=== PATIENT | female | born 1960 | race Caucasian/White ===

== ENCOUNTER 2017-01-03 07:34 | Outpatient (CLI) | payer MEDICARE, MEDICAID ==
[2017-01-03] MEDS ORDERED: GADOBUTROL 7.5 MMOL/7.5 ML VIAL IVP ONE (08:49)
== END 2017-01-03 07:35 | disposition home or self-care (01) ==
DX: K92.1 Melena (principal); B19.20 Unspecified viral hepatitis C without hepatic coma; Z85.048 Personal history of other malignant neoplasm of rectum, rectosigmoid junction, and anus
CPT/HCPCS: 74183; A9585

== ENCOUNTER 2017-04-10 13:41 | Emergency (ER) | payer MEDICARE, MEDICAID ==
[2017-04-10] MEDS ORDERED: SODIUM CHLORIDE 0.9% 1,000 ML IV ONE (14:18)
--- NOTE | 2017-04-10 14:20 | ED Physician Documentation ---
PD HPI ABD PAIN - Stated complaint Stated Complaint: CONSTIPATION - Chief complaint Chief Complaint: Abd Pain - History obtained from History obtained from: Patient - History of Present Illness Timing - onset: Other (57-year-old woman with history of rectal cancer and hysterectomy, also history of small bowel obstruction presents with about 2 weeks worth of decreasing volume of bowel movements despite no decrease in flatus associated with abdominal swelling and pressure. She denies vomiting she says she is eating okay. 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 rectal cancer - Past Surgical History Past Surgical History: Yes General: Colonoscopy, EGD Ortho: Carpal Tunnel surgery /PRECISION LENS TECHNICIAN: Hysterectomy - Present Medications Home Medications: Ambulatory Orders Medication Instructions Recorded Confirmed Amitriptyline [Elavil] 10 mg PO HS 06/07/16 04/10/17 Cholecalciferol [Vitamin D3] 5,000 units PO DAILY 06/07/16 04/10/17 Multivitamin [Multivitamins] 1 cap PO DAILY 06/07/16 04/10/17 buPROPion [Wellbutrin Sr] 450 mg PO DAILY 06/07/16 04/10/17 Albuterol 2.5 mg INH Q4H PRN 04/10/17 04/10/17 Aspirin [Aspirin EC] 81 mg PO DAILY 04/10/17 04/10/17 Calcium Citrate/Vitamin D3 1 each PO DAILY 04/10/17 04/10/17 [Calcium Citrate +Vit D3 Tablet] L. Acidophilus/L. Rhamnosus 1 cap PO DAILY 04/10/17 04/10/17 [Probiotic 15 Billion Cell Cap] Mirtazapine 15 mg PO DAILY 04/10/17 04/10/17 Vitamin C/Biotin [Mbax-Ikpc-Cuenk 1 each PO DAILY 04/10/17 04/10/17 Gummies] predniSONE [Deltasone] 20 mg PO [id number] #21 tab 04/10/17 - Allergies Allergies/Adverse Reactions: Allergies Allergy/AdvReac Type Severity Reaction Status Date / Time Penicillins Allergy Unknown Verified 04/10/17 13:50 - Social History Does the pt smoke?: Yes Smoking Status: Current every day smoker Does the pt drink ETOH?: No Does the pt have substance abuse?: Yes - Family History Family history: reports: Non contributory - Immunizations Immunizations are current?: Yes - POLST Patient has POLST: No PD ED PE NORMAL - Vitals Vital signs reviewed: Yes - General General: Alert and oriented X 3, No acute distress - Neck Neck: Supple, no meningeal sign, No bony TTP - Cardiac Cardiac: RRR, No murmur - Respiratory Respiratory: No respiratory distress, Clear bilaterally - Abdomen Abdomen: Soft (Distended abdomen with tinkling bowel tones and mild diffuse tenderness) - Back Back: No CVA TTP, No spinal TTP - Extremities Extremities: No edema, No calf tenderness / cord - Neuro Neuro: Alert and oriented X 3, Normal speech - Psych Psych: Normal mood, Normal affect Results - Vitals Vitals: Vital Signs - 24 hr 04/10/17 04/10/17 04/10/17 13:46 16:17 17:22 Temperature 36.7 C Heart Rate 116 H 102 H 97 Respiratory 14 18 14 Rate Blood Pressure 139/93 H 140/93 H 128/88 H O2 Saturation 100 100 100 Oxygen O2 Source Room air - Labs Labs: Laboratory Tests 04/10/17 04/10/17 04/10/17 14:37 14:55 15:58 WBC 5.5 RBC 4.74 Hgb 14.3 Hct 44.3 MCV 93.5 MCH 30.3 MCHC 32.4 RDW 15.6 H Plt Count 195 MPV 8.6 Neut # 3.8 Lymph # 0.9 L Morton # 0.6 Eos # 0.1 Baso # 0.0 Absolute Nucleated RBC 0.00 Nucleated RBCs 0.0 Sodium 141 Potassium 3.1 L Chloride 106 Carbon Dioxide 28 Anion Gap 7.0 BUN 13 Creatinine 0.9 Estimated GFR (MDRD) 64 L Glucose 86 Calcium 8.2 L Total Bilirubin 0.5 AST 44 H ALT 45 Alkaline Phosphatase 93 Total Protein 5.4 L Albumin 3.1 L Globulin 2.3 Albumin/Globulin Ratio 1.3 Lipase 22 Urine Color YELLOW Urine Clarity CLEAR Urine pH 5.5 Ur Specific [place] <=1.005 Urine Protein NEGATIVE Urine Glucose (UA) NEGATIVE Urine Ketones NEGATIVE Urine Occult Blood NEGATIVE Urine Nitrite NEGATIVE Urine Bilirubin NEGATIVE Urine Urobilinogen 1 (NORMAL) Ur Leukocyte Esterase NEGATIVE Ur Microscopic Review NOT INDICATED Urine Culture Comments NOT INDICATED - Rads (name of study) CT A/P Radiology: EMP read contemporaneously (Recurrent mid/distal ileal enteritis with mild thickening of the colonic stewart) PD MEDICAL DECISION MAKING - ED course ED course: She presents with a concern for recurrent small bowel obstruction, clinically this is not happening, she is shown to have ileitis on CT, she is seen in the GI physicians and all of them have issues dealing colonoscopies on her because of her anatomy and she is continuing to followup for this. Steroid should be helpful in the interim. Departure - Departure Disposition: Home, Self Care Clinical Impression: Ileitis, Abdominal pain, Enteritis Condition: Good Record reviewed to determine appropriate education?: Yes Instructions: ED Abdominal Pain Unkn Cause Prescriptions: predniSONE [Deltasone] 20 mg PO [id number] #21 tab Comments: Followup with your cream dipper as discussed. Return if worse. You should start to improve after a couple of days of steroid. Your blood pressure was elevated today on check in to the emergency department. This does not mean that you have hypertension, it is a common phenomenon to check into the emergency department and have elevated blood pressure. I recommend that you see your primary care physician within the week to have it rechecked when you're feeling better. Discharge Date/Time: 04/10/17 17:33
[2017-04-10 15:07] LABS: BASOPHILS % (AUTO) 0.8 %; EOSINOPHILS # (AUTO) 0.1 10^3/uL (0.0-0.7); EOSINOPHILS % (AUTO) 1.4 %; HCT - HEMATOCRIT 44.3 % (37.0-47.0); HGB - HEMOGLOBIN 14.3 g/dL (12.0-16.0); LYMPHOCYTES # (AUTO) 0.9 10^3/uL (1.5-3.5); LYMPHOCYTES % (AUTO) 17.2 %; MEAN CORPUSCULAR HEMOGLOBIN 30.3 pg (27.0-31.0); MEAN CORPUSCULAR HGB CONC 32.4 g/dL (32.0-36.0); MEAN CORPUSCULAR VOLUME 93.5 fL (81.0-99.0); MEAN PLATELET VOLUME 8.6 fL (7.9-10.8); MONOCYTES # (AUTO) 0.6 10^3/uL (0.0-1.0); MONOCYTES % (AUTO) 11.3 %; NEUTROPHILS # (AUTO) 3.8 10^3/uL (1.5-6.6); NEUTROPHILS % (AUTO) 69.3 %; RED BLOOD COUNT 4.74 10^6/uL (4.20-5.40); RED CELL DISTRIBUTION WIDTH 15.6 % (12.0-15.0); UNCORRECTED WHITE BLOOD COUNT 5.5 x10^3/uL; WHITE BLOOD COUNT 5.5 x10^3/uL (4.8-10.8)
[2017-04-10 15:22] LABS: ALBUMIN/GLOBULIN RATIO 1.3 (1.0-2.2); BILIRUBIN,TOTAL 0.5 mg/dL (0.2-1.0); CALCIUM 8.2 mg/dL (8.5-10.3); CREATININE 0.9 mg/dL (0.4-1.0); POTASSIUM 3.1 mmol/L (3.5-5.0); TOTAL PROTEIN 5.4 g/dL (6.7-8.2)
[2017-04-10] MEDS ORDERED: POTASSIUM BICARB 25 MEQ TABLET PO STA (15:35)
[2017-04-10] MEDS ORDERED: POTASSIUM BICARB 25 MEQ TABLET PO ONE (15:44)
[2017-04-10 16:12] LABS: BILIRUBIN,URINE NEGATIVE (NEGATIVE); PH,URINE 5.5 PH (5.0-7.5)
[2017-04-10 16:15] LABS: UA CHARGE (STRIP ONLY) YES; UR CULTURE IF IND NOT INDICATED
[2017-04-10] MEDS ORDERED: IOPAMIDOL-300 100 ML VIAL IVP ONE (16:29)
--- NOTE | 2017-04-10 17:05 | CT Preliminary Report ---
Exam: CT Abdomen/Pelvis W/ IMPRESSION: Recurrent mid/distal ileal enteritis. Mild thickening of the distal sigmoid colon and rectal stewart, w hich could represent proctocolitis or artifact of underdistention. Consider GI consultation to evalua te for inflammatory bowel disease such as Crohn's. [facility] SITE ID: [id number]
--- NOTE | 2017-04-10 17:07 | CT Report ---
EXAM: CT ABDOMEN AND PELVIS EXAM DATE: 04/10/2017 04:35 PM. CLINICAL HISTORY: Diffuse abdominal pain. Concern for small bowel obstruction. COMPARISONS: Noncontrast CT abdomen/pelvis 04/08/2016. Contrast-enhanced CT abdomen/pelvis 08/09/2015 . TECHNIQUE: Routine helical CT imaging was performed through the abdomen and pelvis. IV contrast: 100 mL Isovue-300. Enteric contrast: Yes. Reconstructions: Coronal and sagittal. In accordance with CT protocol optimization, one or more of the following dose reduction techniques w ere utilized for this exam: automated exposure control, adjustment of mA and/or KV based on patient s ize, or use of iterative reconstructive technique. FINDINGS: Lung Bases: Emphysematous changes. Liver: Diffuse low-attenuation of the hepatic parenchyma relative to the spleen, as before, indicatin g steatosis. No focal hepatic lesion. Gallbladder/Bile Ducts: Unremarkable. No visualized stones or biliary ductal dilatation. Spleen: Normal. Pancreas: Normal. Adrenal Glands: Normal. Kidneys and Ureters: 2 cm cortical cyst in the medial left upper pole. Several stable subcentimeter r ound hypoattenuating foci elsewhere in the bilateral renal cortices likely also represent cysts. No s tones, hydronephrosis, or hydroureter. Peritoneal Cavity/Bowel: Stable small hiatal hernia. Mid/distal ileal wall thickening in the right lo wer quadrant and pelvis, similar appearance to prior exams. Mild thickening of the decompressed dista l sigmoid colon and rectal stewart. No evidence for bowel obstruction. The appendix is normal. Small-to -moderate volume free fluid. No rim-enhancing focal fluid collection to suggest abscess. No pneumoper itoneum or adenopathy. Pelvic Organs: Post hysterectomy. The bladder is within normal limits. Vasculature: Mild to moderate atherosclerotic calcifications within the aorta and iliac arteries. The visualized mesenteric arteries are patent. Bones: Transitional partially lumbarized S1 vertebral body, a normal variant. Mild to moderate multil evel degenerative disk disease, most pronounced in the visualized lower thoracic spine. Moderate to s evere facet arthropathy in the lower lumbar spine. No acute bony abnormality. Other: None. IMPRESSION: Recurrent mid/distal ileal enteritis. Mild thickening of the distal sigmoid colon and rectal stewart, w hich could represent proctocolitis or artifact of underdistention. Consider GI consultation to evalua te for inflammatory bowel disease such as Crohn's. [facility] Referring Provider Line: [phone] SITE ID: [id number]
[2017-04-10] MEDS ORDERED: predniSONE 20 MG TABLET PO STA (17:11)
[2017-04-10 17:22] VITALS: BP 128/88
[2017-04-10] MEDS ORDERED: predniSONE 20 MG TABLET ONE ×2 (17:23→17:26)
== END 2017-04-10 17:33 | disposition home or self-care (01) ==
LOC: ED 13:41
DX: K52.9 Noninfective gastroenteritis and colitis, unspecified (principal); R10.9 Unspecified abdominal pain; Z85.048 Personal history of other malignant neoplasm of rectum, rectosigmoid junction, and anus; R03.0 Elevated blood-pressure reading, without diagnosis of hypertension; F17.200 Nicotine dependence, unspecified, uncomplicated; F15.10 Other stimulant abuse, uncomplicated
CPT/HCPCS: 36415; 74177; 80053; 81003; 83690; 85025; 96360; 99284; A9270; J7512; Q9967; 81001; 87086

== ENCOUNTER 2017-04-19 05:07 | Emergency (ER) | payer MEDICARE, MEDICAID ==
--- NOTE | 2017-04-19 06:04 | ED Physician Documentation ---
History of Present Illness - Stated complaint Stated Complaint: RT LEG,ANKLE SWELLING - Chief complaint Chief Complaint: Abd Pain - History obtained from History obtained from: Patient - History of Present Illness Timing: How many days ago (3) - Additonal information Additional information: 57 y/o female survivor of rectal cancer has been on prednisone for a partial bowel obstruction for the past week and she has developed swelling of her whole body and this has improved and she is left with swelling to the right lower ext. This is painless and she has not had this before. She has a variety of other symptoms and is anxious and a poor historian. Review of Systems Constitutional: reports: Myalgias, Fatigue. denies: Fever Eyes: denies: Decreased vision Ears: denies: Ear pain Nose: denies: Rhinorrhea / runny nose, Congestion Throat: denies: Sore throat Cardiac: denies: Chest pain / pressure, Palpitations Respiratory: denies: Dyspnea, Cough GI: reports: Abdominal Pain, Nausea. denies: Constipation, Diarrhea : denies: Dysuria, Frequency Skin: denies: Rash Musculoskeletal: reports: Extremity pain, Extremity swelling. denies: Neck pain , Back pain Neurologic: reports: Generalized weakness. 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 - Past Surgical History Past Surgical History: Yes General: Colonoscopy, EGD Ortho: Carpal Tunnel surgery /SALES COUNSELOR: Hysterectomy - Present Medications Home Medications: Ambulatory Orders Medication Instructions Recorded Confirmed Amitriptyline [Elavil] 10 mg PO HS 06/07/16 04/19/17 Cholecalciferol [Vitamin D3] 5,000 units PO DAILY 06/07/16 04/19/17 Multivitamin [Multivitamins] 1 cap PO DAILY 06/07/16 04/19/17 buPROPion [Wellbutrin Sr] 150 mg PO BID 06/07/16 04/19/17 Albuterol 2.5 mg INH Q4H PRN 04/10/17 04/19/17 Aspirin [Aspirin EC] 81 mg PO DAILY 04/10/17 04/19/17 Calcium Citrate/Vitamin D3 1 each PO DAILY 04/10/17 04/19/17 [Calcium Citrate +Vit D3 Tablet] Mirtazapine 15 mg PO DAILY 04/10/17 04/19/17 Vitamin C/Biotin [Nong-Qjbf-Jveho 1 each PO DAILY 04/10/17 04/19/17 Gummies] predniSONE [Deltasone] 20 mg PO [id number] #21 tab 04/10/17 04/19/17 Loperamide [Imodium] 2 mg PO DAILY 04/19/17 04/19/17 Potassium Chloride 10 meq PO DAILY #20 tablet.er 04/19/17 Spironolactone 25 mg PO DAILY #10 tablet 04/19/17 - Allergies Allergies/Adverse Reactions: Allergies Allergy/AdvReac Type Severity Reaction Status Date / Time Penicillins Allergy Unknown Verified 04/10/17 13:50 - Social History Does the pt smoke?: Yes Smoking Status: Current every day smoker Does the pt drink ETOH?: No Does the pt have substance abuse?: Yes - Immunizations Immunizations are current?: Yes - POLST Patient has POLST: No PD ED PE NORMAL - Vitals Vital signs reviewed: Yes (tachy and hypertensive) - General General: Alert and oriented X 3, Well developed/nourished - HEENT HEENT: Atraumatic, PERRL, EOMI - Neck Neck: Supple, no meningeal sign - Cardiac Cardiac: Other (tachy to 110) - Respiratory Respiratory: No respiratory distress, Other (diminished breath sounds ) - Abdomen Abdomen: Normal bowel sounds, Soft, Non tender, Non distended - Back Back: No CVA TTP, No spinal TTP - Derm Derm: Normal color, Warm and dry, No rash - Extremities Extremities: No deformity. No: Other (The right leg is swollen without tenderness to the posterior calf. ) - Neuro Neuro: No motor deficit, No sensory deficit - Psych Psych: Normal mood, Normal affect Results - Vitals Vitals: Vital Signs - 24 hr 04/19/17 04/19/17 04/19/17 05:22 05:28 06:01 Temperature 36.1 C L Heart Rate 107 H 104 H 102 H Respiratory 18 20 19 Rate Blood Pressure 151/101 H 145/107 H 134/97 H O2 Saturation 100 100 100 04/19/17 09:58 Temperature Heart Rate 99 Respiratory 18 Rate Blood Pressure 133/62 H O2 Saturation 98 Oxygen O2 Source Room air - Labs Labs: Laboratory Tests 04/19/17 04/19/17 04/19/17 06:23 06:23 06:23 WBC 9.0 RBC 4.70 Hgb 14.1 Hct 43.8 MCV 93.1 MCH 30.0 MCHC 32.2 RDW 15.6 H Plt Count 248 MPV 8.4 Neut # 6.6 Lymph # 1.6 [place] # 0.7 Eos # 0.1 Baso # 0.1 Absolute Nucleated RBC 0.00 Nucleated RBCs 0.0 D-Dimer 532.8 H Sodium 142 Potassium 2.4 L* Chloride 101 Carbon Dioxide 30 Anion Gap 11.0 BUN 21 H Creatinine 0.8 Estimated GFR (MDRD) 73 L Glucose 81 Calcium 9.3 Total Bilirubin 0.9 AST 78 H ALT 62 H Alkaline Phosphatase 93 Troponin I Total Protein 6.1 L Albumin 3.6 Globulin 2.5 Albumin/Globulin Ratio 1.4 Lipase 20 L Urine Color Urine Clarity Urine pH Ur Specific [place] Urine Protein Urine Glucose (UA) Urine Ketones Urine Occult Blood Urine Nitrite Urine Bilirubin Urine Urobilinogen Ur Leukocyte Esterase Urine RBC Urine WBC Ur Squamous Epith Cells Urine Bacteria Ur Microscopic Review Urine Culture Comments Urine Opiates Screen Ur Oxycodone Screen Urine Methadone Screen Ur Propoxyphene Screen Ur Barbiturates Screen Ur Tricyclics Screen Ur Phencyclidine Scrn Ur Amphetamine Screen U Methamphetamines Scrn U Benzodiazepines Scrn Urine Cocaine Screen U Cannabinoids Screen 04/19/17 04/19/17 06:23 06:35 WBC RBC Hgb Hct MCV MCH MCHC RDW Plt Count MPV Neut # Lymph # [place] # Eos # Baso # Absolute Nucleated RBC Nucleated RBCs D-Dimer Sodium Potassium Chloride Carbon Dioxide Anion Gap BUN Creatinine Estimated GFR (MDRD) Glucose Calcium Total Bilirubin AST ALT Alkaline Phosphatase Troponin I 0.05 Total Protein Albumin Globulin Albumin/Globulin Ratio Lipase Urine Color DARK YELLOW Urine Clarity CLOUDY Urine pH 6.0 Ur Specific [place] >=1.030 H Urine Protein 100 H Urine Glucose (UA) NEGATIVE Urine Ketones NEGATIVE Urine Occult Blood LARGE H Urine Nitrite NEGATIVE Urine Bilirubin NEGATIVE Urine Urobilinogen 2 H Ur Leukocyte Esterase NEGATIVE Urine RBC TNTC H Urine WBC 0-3 Ur Squamous Epith Cells RARE Squamous Urine Bacteria None Seen Ur Microscopic Review INDICATED Urine Culture Comments NOT INDICATED Urine Opiates Screen NEGATIVE Ur Oxycodone Screen NEGATIVE Urine Methadone Screen NEGATIVE Ur Propoxyphene Screen NEGATIVE Ur Barbiturates Screen NEGATIVE Ur Tricyclics Screen NEGATIVE Ur Phencyclidine Scrn NEGATIVE Ur Amphetamine Screen POSITIVE H U Methamphetamines Scrn POSITIVE H U Benzodiazepines Scrn NEGATIVE Urine Cocaine Screen NEGATIVE U Cannabinoids Screen NEGATIVE - Rads (name of study) duplex right leg. Radiology: Prelim report reviewed (Impression: No evidence for deep venous thrombosis.), EMP read indepedently, See rad report Procedures - IVC sono (time) 0600 Bedside IVC sono: IVC measures (cm) (1.57), IVC collapsed c insp (cm) (1.02), Euvolemia PD MEDICAL DECISION MAKING - ED course Complexity details: reviewed old records, reviewed results, re-evaluated patient , considered differential, d/w patient ED course: 57 y/o female with a history of rectal cancer in 2003 s/p radiation has had a partial bowel obstruction treated with prednisone and now has swelling of the right leg and shortness of breath. She has a negative venous doppler and an elevated d-dimer and a CT angio of the chest is ordered. Her care is turned over to Dr. Avendano at shift change. Departure - Departure Disposition: 01 Home, Self Care Clinical Impression: Leg swelling, Hypokalemia Ascites Qualifiers: Ascites type: other type Qualified Code(s): R18.8 - Other ascites Dyspnea Qualifiers: Dyspnea type: unspecified Qualified Code(s): R06.00 - Dyspnea, unspecified Condition: Stable Follow-Up: Callie Chavarria ARNP [Primary Care Provider] - Prescriptions: Potassium Chloride 10 meq PO DAILY #20 tablet.er Spironolactone 25 mg PO DAILY #10 tablet Comments: Regular medications. Maintain hydration. Your potassium is low, and need to take supplement to replace that for couple of weeks. Can try spironolactone diuretic daily for short term to see if helps with the swelling/bloating. Follow up with PMD in the next week, call for appt. Discharge Date/Time: 04/19/17 09:58
[2017-04-19 06:33] LABS: BASOPHILS # (AUTO) 0.1 10^3/uL (0.0-0.1); BASOPHILS % (AUTO) 0.8 %; EOSINOPHILS # (AUTO) 0.1 10^3/uL (0.0-0.7); EOSINOPHILS % (AUTO) 0.6 %; HCT - HEMATOCRIT 43.8 % (37.0-47.0); HGB - HEMOGLOBIN 14.1 g/dL (12.0-16.0); LYMPHOCYTES # (AUTO) 1.6 10^3/uL (1.5-3.5); MEAN CORPUSCULAR HGB CONC 32.2 g/dL (32.0-36.0); MEAN CORPUSCULAR VOLUME 93.1 fL (81.0-99.0); MEAN PLATELET VOLUME 8.4 fL (7.9-10.8); MONOCYTES # (AUTO) 0.7 10^3/uL (0.0-1.0); MONOCYTES % (AUTO) 7.3 %; NEUTROPHILS # (AUTO) 6.6 10^3/uL (1.5-6.6); NEUTROPHILS % (AUTO) 73.3 %; RED CELL DISTRIBUTION WIDTH 15.6 % (12.0-15.0)
[2017-04-19] MEDS ORDERED: POTASSIUM BICARB 25 MEQ TABLET PO ONE ×2 (06:50→08:24)
[2017-04-19] MEDS ORDERED: POTASSIUM BICARB 25 MEQ TABLET PO STA ×2 (06:50→08:11)
[2017-04-19 06:51] LABS: ALBUMIN/GLOBULIN RATIO 1.4 (1.0-2.2); BILIRUBIN,TOTAL 0.9 mg/dL (0.2-1.0); CALCIUM 9.3 mg/dL (8.5-10.3); CREATININE 0.8 mg/dL (0.4-1.0); TOTAL PROTEIN 6.1 g/dL (6.7-8.2)
[2017-04-19 06:51] LABS: BILIRUBIN,URINE NEGATIVE (NEGATIVE)
[2017-04-19 06:52] LABS: POTASSIUM 2.4 mmol/L (3.5-5.0)
[2017-04-19 07:06] LABS: UA w/ MICROSCOPIC CHARGE YES; UR CULTURE IF IND NOT INDICATED; WBC,URINE 0-3 /HPF (0-5)
--- NOTE | 2017-04-19 07:59 | Ultrasound Preliminary Report ---
Exam: US Duplex Ext Veins Right IMPRESSION: No evidence for deep venous thrombosis. [facility] SITE ID: [id number]
--- NOTE | 2017-04-19 08:01 | Ultrasound Report ---
EXAM: RIGHT LOWER EXTREMITY VENOUS ULTRASOUND EXAM DATE: 04/19/2017 07:51 AM. CLINICAL HISTORY: Unilateral leg swelling. . COMPARISON: None. TECHNIQUE: Real-time sonographic vascular imaging was performed by the freight clerk through the lower extremity utilizing both color-flow and Doppler spectral analysis. Multiple marketing development representative static chelsea ges were saved for review. FINDINGS: Common Femoral Vein (CFV): Normal. CFV-GSV Junction: Normal. Profunda Femoral Vein (PFV): Normal. Femoral Vein (FV) Prox: Normal. Femoral Vein (FV) Mid: Normal. Femoral Vein (FV) Dist: Normal. Popliteal Vein: Normal. Posterior Tibial Veins: Normal. Peroneal Veins: Normal. Contralateral Side CFV: Normal. Other: None. IMPRESSION: No evidence for deep venous thrombosis. [facility] Referring Provider Line: [phone] SITE ID: [id number]
[2017-04-19] MEDS ORDERED: IOPAMIDOL-300 100 ML VIAL IVP ONE (08:54)
--- NOTE | 2017-04-19 09:23 | CT Preliminary Report ---
Exam: CT Chest Angio (PE) IMPRESSION: 1. No evidence of pulmonary embolus. 2. Cardiomegaly. Coronary artery and aortic atherosclerosis. Limited luminal enhancement of the thora cic aorta. No thoracic aortic aneurysm. 3. Very small right pleural effusion. 4. Faint prominence of the vasculature and interstitium which may be due to underlying lung disease o r mild edema. 5. Small volume of upper abdominal perihepatic and perisplenic free fluid. 6. Subcutaneous edema. [facility] SITE ID: [id number]
--- NOTE | 2017-04-19 09:43 | CT Report ---
EXAM: CT ANGIOGRAM CHEST EXAM DATE: 04/19/2017 08:54 AM. CLINICAL HISTORY: Dyspnea on exertion. COMPARISON: 06/10/2016. TECHNIQUE: Routine helical imaging was performed through the chest in the pulmonary arterial phase. I V Contrast: 100 cc of Isovue-300. Reconstructions: Coronal 3-D MIP reconstructions.Sagittal and coron al. In accordance with CT protocol optimization, one or more of the following dose reduction techniques w ere utilized for this exam: automated exposure control, adjustment of mA and/or KV based on patient s ize, or use of iterative reconstructive technique. FINDINGS: Pulmonary Arteries: Diagnostic quality: Adequate through the segmental arteries. No evidence for acute or chronic pulmona ry emboli. Lungs/Pleura: Parenchymal bullae is again seen in the left medial lower lobe. There is mild bronchial thickening and bronchovascular thickening. There are mild emphysematous changes. Septa are mildly pr ominent and there are very faint ground-glass density noted bilaterally. Scar/ atelectasis is present in the right middle lobe, lingula and both lower lobes. No areas of dense consolidation. Very small right pleural effusion. Mediastinum: Heart is enlarged. Small pericardial effusion. Coronary artery calcified plaque. Small h iatal hernia. Subcentimeter mediastinal and hilar lymph nodes. There is mediastinal edema. Right supe rior paratracheal 6 mm short axis dimension extension lymph node is seen. Visualized thyroid gland is unremarkable on these unenhanced images. Thoracic Aorta: Limited in detail due to lack of enhancement. No evidence of aneurysm. Thoracic aorti c calcified plaque. Upper Abdomen: Included portions of the liver and spleen are unremarkable. There is perihepatic free fluid. Included portions of the pancreas and adrenals are unremarkable. Upper pole low-attenuation le mary is seen in the left kidney as before. Otherwise, included portions of upper abdominal bowel is u nremarkable. Other: Degenerative changes of the thoracic spine. No acute osseous abnormalities are identified. Deg enerative changes of both shoulders. There is subcutaneous edema. IMPRESSION: 1. No evidence of pulmonary embolus. 2. Cardiomegaly. Coronary artery and aortic atherosclerosis. Limited luminal enhancement of the thora cic aorta. No thoracic aortic aneurysm. 3. Very small right pleural effusion. 4. Faint prominence of the vasculature and interstitium which may be due to underlying lung disease o r mild edema. 5. Small volume of upper abdominal perihepatic and perisplenic free fluid. 6. Subcutaneous edema. [facility] Referring Provider Line: [phone] SITE ID: [id number]
--- NOTE | 2017-04-19 09:44 | ED Physician Documentation ---
ED Addendum - Addendum Addendum: 04/19/17 09:42 CT report showing no PE. Note made of some free fluid in upper abd cavity. This was also noted on CT abd 04/10/17. Presume some ascites, but does not have liver elevations (patient says h/o Hep C though). Could be from enteritis that had been seen on CT 04/10. Can try some diuretic, though will want to increase potassium level first. Had gotten K supplement here in ED. Will continue oral replacement outpt.
[2017-04-19 09:58] VITALS: BP 133/62
--- NOTE | 2017-04-20 15:39 | ED Physician Documentation ---
ED Addendum - Addendum Addendum: 04/20/17 15:38 Call from pharmacy, she didn't have the prescriptions, only the discharge paperwork, I confirmed that these prescriptions were written by us.
== END 2017-04-19 09:58 | disposition home or self-care (01) ==
LOC: ED 05:07
DX: R22.41 Localized swelling, mass and lump, right lower limb (principal); E87.6 Hypokalemia; R18.8 Other ascites; R06.00 Dyspnea, unspecified; J44.9 Chronic obstructive pulmonary disease, unspecified; K21.9 Gastro-esophageal reflux disease without esophagitis; M19.90 Unspecified osteoarthritis, unspecified site; Z85.528 Personal history of other malignant neoplasm of kidney; F17.200 Nicotine dependence, unspecified, uncomplicated
CPT/HCPCS: 36415; 71275; 80053; 80306; 81001; 83690; 84484; 85025; 85379; 93971; 99284; A9270; Q9967; 81003; 87086

== ENCOUNTER 2017-04-21 12:36 | Outpatient (CLI) | payer MEDICARE, MEDICAID | END 2017-04-21 12:37 | disposition critical access hospital (66) | LOC: EMS 12:36 | PROVIDERS: ATTEND Surgery | DX: R10.9 Unspecified abdominal pain (principal) | CPT/HCPCS: A0425; A0429 ==

== ENCOUNTER 2017-04-21 13:04 | Inpatient (IN) | payer MEDICARE, MEDICAID ==
--- NOTE | 2017-04-21 13:24 | ED Physician Documentation ---
PD HPI ABD PAIN - Stated complaint Stated Complaint: SWOLLEN ABD - Chief complaint Chief Complaint: Abd Pain - History obtained from History obtained from: Patient, EMS - History of Present Illness Timing - onset: Other (This a 57-year-old woman with history of rectal cancer and hysterectomy. She was seen by me on the fourth of this month, symptoms at that time her concerning for small bowel obstruction, CT showed potentially an enteritis/ileitis but there was no ascites at the time. She was started on prednisone which she has since finished. She was seen again a few days ago, she had imaging including CT angiogram of the chest after a positive d-dimer showing coronary disease and potentially mild edema (no PE). She had 3 significant hypokalemia and was started on potassium supplementation as well as Aldactone. She returns today for increasing abdominal swelling associated with mild shortness of breath and she complains of pedal edema and edema of her genitals. She has been having bowel movements, assisted with laxitive's. She denies any fevers or orthopnea. Abdomen is in so much pain full as pressure- like. She has no he personal history of heart problems but there is an extensive history of heart problems in the family. She is a little evasive when asked her when she used meth amphetamines last, potentially 5-10 days ago. No history of alcohol abuse.) Review of Systems Ten Systems: 10 systems reviewed and negative Constitutional: reports: Fatigue. denies: Fever, Chills Nose: denies: Rhinorrhea / runny nose, Congestion Cardiac: reports: Pedal edema. denies: Chest pain / pressure, Palpitations, Calf pain Respiratory: reports: Dyspnea. denies: Cough, Hemoptysis, Wheezing GI: reports: Abdominal Swelling, Nausea, Vomiting (oonce), Constipation. denies : Bloody / black stool PD PAST MEDICAL HISTORY - Past Medical History Cardiovascular: None Respiratory: COPD Neuro: None Endocrine/Autoimmune: None GI: GERD HOPPER ATTENDANT: None : None HEENT: None Psych: Depression, Anxiety Musculoskeletal: Osteoarthritis, Osteoporosis, Scoliosis, Chronic back pain, Other Derm: None - Past Surgical History Past Surgical History: Yes General: Colonoscopy, EGD Ortho: Carpal Tunnel surgery /HOPPER ATTENDANT: Hysterectomy - Present Medications Home Medications: Ambulatory Orders Medication Instructions Recorded Confirmed buPROPion [Wellbutrin Sr] 150 mg PO BID 06/07/16 04/19/17 Albuterol 2.5 mg INH Q4H PRN 04/10/17 04/19/17 Potassium Chloride 10 meq PO DAILY #20 tablet.er 04/19/17 Spironolactone 25 mg PO DAILY #10 tablet 04/19/17 - Allergies Allergies/Adverse Reactions: Allergies Allergy/AdvReac Type Severity Reaction Status Date / Time Penicillins Allergy Unknown Verified 04/21/17 13:10 - Social History Does the pt smoke?: Yes Smoking Status: Current every day smoker Does the pt drink ETOH?: No Does the pt have substance abuse?: Yes Substance Use and Type: Meth - Family History Family history: reports: Non contributory - Immunizations Immunizations are current?: Yes - POLST Patient has POLST: No PD ED PE NORMAL - Vitals Vital signs reviewed: Yes (hypertensive) - General General: Alert and oriented X 3, No acute distress - HEENT HEENT: PERRL, EOMI, Other (marked JVD) - Cardiac Cardiac: RRR, No murmur - Respiratory Respiratory: No respiratory distress, Clear bilaterally - Abdomen Abdomen: Soft, Non tender, Other (Swollen with dullness to percussion and bedside ultrasound does show ascites) - Derm Derm: Normal color, Warm and dry - Extremities Extremities: Other (3+ pitting pedal edema) - Neuro Neuro: Alert and oriented X 3, Normal speech - Psych Psych: Normal mood, Normal affect Results - Vitals Vitals: Vital Signs - 24 hr 04/21/17 04/21/17 13:05 13:59 Temperature 37.2 C Heart Rate 107 H 113 H Respiratory 22 18 Rate Blood Pressure 149/94 H 138/96 H O2 Saturation 100 100 Oxygen O2 Source Room air - EKG (time done) 1331 Rate: Rate (enter#) (106) Rhythm: NSR (with pac), LAE, BRE [place]: Normal Intervals: Normal TN QRS: Normal Ischemia: Non specific changes Computer interpretation: Agree with computer - Labs Labs: Laboratory Tests 04/21/17 04/21/17 04/21/17 14:10 14:10 14:10 WBC 12.5 H RBC 4.54 Hgb 13.8 Hct 41.6 MCV 91.5 MCH 30.4 MCHC 33.2 RDW 15.5 H Plt Count 237 MPV 8.4 Neut # 10.6 H Lymph # 0.9 L Barnes # 0.8 Eos # 0.1 Baso # 0.1 Absolute Nucleated RBC 0.01 Nucleated RBCs 0.1 PT 13.6 H INR 1.2 Sodium 142 Potassium 2.7 L Chloride 104 Carbon Dioxide 28 Anion Gap 10.0 BUN 12 Creatinine 0.6 Estimated GFR (MDRD) 102 Glucose 113 H Calcium 8.6 Total Bilirubin 1.2 H AST 56 H ALT 55 Alkaline Phosphatase 87 Total Creatine Kinase 199 CK-MB (CK-2) Troponin I B-Natriuretic Peptide Total Protein 6.0 L Albumin 3.4 Globulin 2.6 Albumin/Globulin Ratio 1.3 Lipase 23 04/21/17 04/21/17 14:10 14:10 WBC RBC Hgb Hct MCV MCH MCHC RDW Plt Count MPV Neut # Lymph # Barnes # Eos # Baso # Absolute Nucleated RBC Nucleated RBCs PT INR Sodium Potassium Chloride Carbon Dioxide Anion Gap BUN Creatinine Estimated GFR (MDRD) Glucose Calcium Total Bilirubin AST ALT Alkaline Phosphatase Total Creatine Kinase CK-MB (CK-2) 8.3 H Troponin I 0.04 B-Natriuretic Peptide 1981 H Total Protein Albumin Globulin Albumin/Globulin Ratio Lipase - Rads (name of study) 2v chest Radiology: EMP read contemporaneously (Cardiomegaly but clear lungs except for increased interstitial markings) Procedures - General procedure General procedure: She was difficult for IV access, I personally placed a 18-gauge IV after ChloraPrep in the left external jugular vein and blood was drawn. PD MEDICAL DECISION MAKING - ED course ED course: This 57-year-old woman presents with acute abdominal swelling and evidence of anasarca, this is consistent with potentially right-sided heart failure which is a new diagnosis for her. Her BNP is quite elevated potassium is still quite low. For that reason diuretics were held initially because she will need to have potassium repletion first. Spoke with Dr. Bryant for admission at 250 p.m. Departure - Departure Disposition: 66 [facility] DC/Xfer Clinical Impression: Abdominal pain, hepatitis C, Hypokalemia Ascites Qualifiers: Ascites type: other type Qualified Code(s): R18.8 - Other ascites CHF (congestive heart failure) Qualifiers: Congestive heart failure type: unspecified congestive heart failure type Congestive heart failure chronicity: acute Qualified Code(s): I50.9 - Heart failure, unspecified Condition: Serious
[2017-04-21] MEDS ORDERED: PROMETHAZINE INJ 12.5 MG in SODIUM CHLORIDE 0.9% 50 ML IV STA (14:00)
[2017-04-21] MEDS ORDERED: SODIUM CHLORIDE 0.9% 50 ML IV ONE (14:16)
[2017-04-21] MEDS ORDERED: PROMETHAZINE 25 MG/1 ML VIAL ONE (14:16)
[2017-04-21 14:23] LABS: BASOPHILS # (AUTO) 0.1 10^3/uL (0.0-0.1); BASOPHILS % (AUTO) 0.5 %; EOSINOPHILS # (AUTO) 0.1 10^3/uL (0.0-0.7); EOSINOPHILS % (AUTO) 0.7 %; HCT - HEMATOCRIT 41.6 % (37.0-47.0); HGB - HEMOGLOBIN 13.8 g/dL (12.0-16.0); LYMPHOCYTES # (AUTO) 0.9 10^3/uL (1.5-3.5); LYMPHOCYTES % (AUTO) 7.3 %; MEAN CORPUSCULAR HEMOGLOBIN 30.4 pg (27.0-31.0); MEAN CORPUSCULAR HGB CONC 33.2 g/dL (32.0-36.0); MEAN CORPUSCULAR VOLUME 91.5 fL (81.0-99.0); MEAN PLATELET VOLUME 8.4 fL (7.9-10.8); MONOCYTES # (AUTO) 0.8 10^3/uL (0.0-1.0); MONOCYTES % (AUTO) 6.6 %; NEUTROPHILS # (AUTO) 10.6 10^3/uL (1.5-6.6); NEUTROPHILS % (AUTO) 84.9 %; NUCLEATED RED BLOOD CELLS AUTO 0.1 /100WBC; RED BLOOD COUNT 4.54 10^6/uL (4.20-5.40); RED CELL DISTRIBUTION WIDTH 15.5 % (12.0-15.0); UNCORRECTED WHITE BLOOD COUNT 12.5 x10^3/uL; WHITE BLOOD COUNT 12.5 x10^3/uL (4.8-10.8)
[2017-04-21 14:33] LABS: INR 1.2 (0.8-1.2); PT - PROTHROMBIN TIME 13.6 secs (9.9-12.6)
[2017-04-21 14:41] LABS: ALBUMIN/GLOBULIN RATIO 1.3 (1.0-2.2); BILIRUBIN,TOTAL 1.2 mg/dL (0.2-1.0); CALCIUM 8.6 mg/dL (8.5-10.3); CREATININE 0.6 mg/dL (0.4-1.0); POTASSIUM 2.7 mmol/L (3.5-5.0)
[2017-04-21 14:44] LABS: TROPONIN I 0.04 ng/mL (<0.49)
[2017-04-21] MEDS ORDERED: POTASSIUM CHLOR 10 MEQ/100 ML 100 ML IV ONE ×2 (14:45→14:59)
[2017-04-21 14:46] LABS: CREATINE KINASE MB 8.3 ng/mL (0.6-6.3)
--- NOTE | 2017-04-21 15:17 | XRAY Preliminary Report ---
Exam: XR Chest 2 View PA/LAT IMPRESSION: 1. Cardiomegaly with no pulmonary edema. 2. No focal consolidation. 3. Increased interstitial markings with peribronchial cuffing are nonspecific areas in the setting of reactive airways disease, bronchitis and viral infection. [facility] SITE ID: [id number]
--- NOTE | 2017-04-21 15:20 | XRAY Report ---
EXAM: CHEST RADIOGRAPHY EXAM DATE: 04/21/2017 02:49 PM. CLINICAL HISTORY: CHF. COMPARISON: None. TECHNIQUE: 2 views. FINDINGS: Lungs/Pleura: Subtle increased interstitial markings with peribronchial cuffing. No focal opacities e vident. No pleural effusion. No pneumothorax. Normal volumes. Mediastinum: The heart is enlarged. The pulmonary vasculature is within normal limits. Other: None. IMPRESSION: 1. Cardiomegaly with no pulmonary edema. 2. No focal consolidation. 3. Increased interstitial markings with peribronchial cuffing are nonspecific areas in the setting of reactive airways disease, bronchitis and viral infection. [facility] Referring Provider Line: [phone] SITE ID: [id number]
[2017-04-21] MEDS ORDERED: ZOLPIDEM 5 MG TABLET PO PRN (15:35)
[2017-04-21] MEDS ORDERED: ONDANSETRON 4 MG/2 ML VIAL IVP PRN (15:35)
[2017-04-21] MEDS ORDERED: ACETAMINOPHEN 325 MG TABLET PO PRN (15:35)
[2017-04-21] MEDS ORDERED: oxyCODONE 5 MG TABLET PO PRN (15:35)
[2017-04-21] MEDS ORDERED: PROCHLORPERAZINE 10 MG/2 ML VIAL IVP PRN (15:35)
[2017-04-21] MEDS ORDERED: LORazepam 2 MG/ML SYRINGE IVP STA (16:10)
[2017-04-21] MEDS ORDERED: LORazepam 2 MG/ML SYRINGE ONE (16:15)
--- NOTE | 2017-04-21 17:17 | HISTORY & PHYSICAL EXAMINATION ---
Chief Complaint - Chief Complaint Chief Complaint: abdominal distention History of Present Illness - Admitted From Admitted From:: emergency department - History Obtained From Records Reviewed: yes History obtained from: patient and medical Exam Limitations: none - History of Present Illness HPI Comment/Other: Patient is a 57-year-old female with a past medical history significant for rectal cancer in 2003, status post resection, chemotherapy, radiation, untreated hepatitis C, peptic ulcer disease, methamphetamine abuse, osteoarthritis, osteopenia and tobacco abuse who presented to the emergency department with a chief complaint of abdominal distention. The patient has been seen in the emergency department 3 times in the last 2 weeks. Initially the patient was seen on 04/10/2017 for nausea vomiting and diarrhea a CT scan of the abdomen was done at that time which revealed antritis patient was discharged home with oral steroids. The patient then returned on 04/19/2017 at that time she was seen for abdominal pain and shortness of breath she underwent a CT PE at that time which did not show any evidence of pulmonary embolism. She was found to have severe hypokalemia likely secondary to the persistent diarrhea and was discharged home on oral potassium and Aldactone. The patient returns today complaining of abdominal distention which she states has been worsening over the last 2 weeks. The patient states that she continues to have diarrhea she had several episodes today she is incontinent of stool. She states that she's been vomiting since earlier today and states that she's got shortness of breath secondary to her abdominal distention. She states that the distended abdomen is also causing her to be very anxious. She states that she took a laxative earlier today thinking that this could help her abdominal distention but this does make the diarrhea much worse. The patient denies drinking alcohol or using any recreational drugs. Patient does admit to increased swelling in her lower extremities and in her vaginal area. The patient denies any headaches, blurred vision, runny nose, cough, chest pain, or neurologic deficits. On presentation to the emergency department the patient is afebrile she is tachycardic blood pressures elevated and she is tachypneic but is oxygenating well on room air. The patient's lab work did reveal a potassium of 2.7 her total bilirubin is slightly elevated at 1.2 her AST was slightly elevated at 56 and BNP was very elevated at 1981. The patient appeared to have bilateral lower extremity swelling abdominal wall swelling and swelling in her genital area. The patient also was found to have a distended jugular venous pulse. The patient did have a slight leukocytosis. The patient's chest x-ray showed cardiomegaly without any pulmonary edema or any focal consolidation. The emergency room physician did a ultrasound of the patient's abdomen which showed extensive ascites. The patient was thought to have new onset right-sided heart failure with severe diarrhea and hypokalemia. She was admitted to the medical [facility]. Review of Systems - Constitutional Constitutional: reports: Fatigue, Weakness, Poor appetite, Weight loss. denies : Fever, Chills, Malaise, Diaphoresis, Night sweats, Weight gain - Eyes Eyes: denies: Pain, Irritation, Amaurosis, Blurred vision, Spots in vision, Field loss, Vision loss, Dipolpia, Corrective lenses, Other - Ears, Nose & Throat Ears, Nose & Throat: denies: Ear pain, Hearing loss, Hearing aids, Tinnitus, Vertigo, Nasal pain, Nasal discharge, Nosebleeds, Nasal obstruction, Nasal congestion, Postnasal drainage, Dentures, Sore throat, Hoarseness, Mouth lesions , Bleeding gums, Dental decay, Dental pain, Other - Cardiovascular Cariovascular: reports: Edema, Exertional dyspnea, Decr. exercise tolerance, Orthopnea. denies: Irregular heart rate, Palpitations, Chest pain, Lightheadedness, Syncope - Respiratory Respiratory: reports: Orthopnea, SOB at rest, SOB with exertion. denies: Cough , Sputum production, Wheezing, Hemoptysis, Apnea, Pleuritic pain - Gastrointestinal Gastrointestinal: reports: Abdominal distention, Diarrhea, Nausea, Vomiting, Bile emesis, Bloating, Poor appetite. denies: Black stools, Bloody stools, Wesley blood emesis, Coffee grounds emesis - Genitourinary Genitourinary: reports: Incontinence. denies: Dysuria, Frequency, Urgency, Hematuria - Musculoskeletal Musculoskeletal: reports: Muscle pain. denies: Back pain, Muscle aches, Stiffness, Limited range of motion, Muscle weakness, Joint swelling - Integumentary Integumentary: denies: Rash, Pruritis, Lesions, Dryness, Lumps - Neurological Neurological: reports: General weakness. denies: Focal weakness, Headache, Dizziness, Numbness, Memory problems, Pre-existing deficit, Abnormal gait - Psychiatric Psychiatric: denies: Depression, Anxiety, Suicidal - Endocrine Endocrine: denies: Polyuria, Polydypsia, Polyphagia, Intolerance to cold, Intolerance to heat - Hematologic/Lymphatic Hematologic/Lymphatic: denies: Anemia, Bruising, Lymphadenopathy History - Past Medical History Cardiovascular: reports: None Respiratory: reports: COPD Neuro: reports: None Endocrine/Autoimmune: reports: None GI: reports: GERD, Ulcers (Peptic Ulcer disease), Hepatitis (C), Other (Rectal Cancer s/p resection, chemo and radiation, Hepatitis C) INVASIVE CARDIOVASCULAR TECHNOLOGIST: reports: None : reports: None HEENT: reports: None Psych: reports: Depression, Anxiety Musculoskeletal: reports: Osteoarthritis, Osteoporosis, Scoliosis, Chronic back pain, Other Derm: reports: None MRSA Hx?: No Other Past Medical History: colon cancer. hep c - Past Surgical History General: reports: Colonoscopy, EGD Ortho: reports: Carpal Tunnel surgery /INVASIVE CARDIOVASCULAR TECHNOLOGIST: reports: Hysterectomy - Family & Social History Family History: Mother: , COPD/Emphysema (Mom at 70), Father: Alive and Well (Healthy in 80s) Living arrangement: At home Living Situation: Alone Social History Notes: Patient lives in [place] she was but her 6 months ago. she smokes half a pack of cigarettes a day and has done so for the last She uses methamphetamines but states she has cut down since her . She she has a history of multiple substance abuse. - Substance History Use: Uses substance without health or social issues: Tobacco Abuse: Recurrent use of substance despite neg consequences: Amphetamine Dependence: Experiences withdrawal or developed tolerances: Tobacco, Amphetamine Tobacco Details: Cigarettes - POLST Patient has POLST: No POLST Status: Full Code Meds/Allgy - Home Medications Home Medications: Ambulatory Orders Medication Instructions Recorded Confirmed buPROPion [Wellbutrin Sr] 150 mg PO BID 06/07/16 04/21/17 Albuterol 2.5 mg INH Q4H PRN 04/10/17 04/21/17 Potassium Chloride 10 meq PO DAILY #20 tablet.er 04/19/17 04/21/17 Spironolactone 25 mg PO DAILY #10 tablet 04/19/17 04/21/17 Prednisone 20 mg DAILY 04/21/17 04/21/17 - Allergies Allergies/Adverse Reactions: Allergies Allergy/AdvReac Type Severity Reaction Status Date / Time Penicillins Allergy Unknown Verified 04/21/17 13:10 Exam - Vital Signs Vital Signs: Vital Signs x48h Pulse Resp BP Pulse Ox 04/21/17 16:27 114 H 32 H 154/104 H 99 - Physical Exam General Appearance: positive: Alert, Moderate distress (Very anxious, restless, not comfortable. Pain and diarrhea) Eyes Bilateral: positive: Normal inspection, PERRL, EOMI, No lid inflammation, Conjunctivae nml, Other (Mild icterus) ENT: positive: ENT inspection nml, Pharynx nml, Dry mucous membranes. negative : Purulent nasal drainage, Pharyngeal erythema, Oral lesions Neck: positive: Nml inspection, Thyroid nml, Trachea midline, Other (Distended jugular venous pulse). negative: Thyromegaly, Lymphadenopathy (R), Lymphadenopathy (L) Respiratory: positive: Chest non-tender, Breath sounds nml, Other (Tachypnic does appear to be in mild respiratory distress but lungs sound ok). negative: Wheezes, Rales, Rhonchi Cardiovascular: positive: No murmur, No gallop, Tachycardia Peripheral Pulses: positive: 2+ Abdomen: positive: Tenderness, Guarding, Hepatomegaly, Other (Abdominal distention). negative: Rebound Rectal: positive: Other (vaginal swelling) Back: positive: Nml inspection. negative: CVA tenderness (R), CVA tenderness (L ) Skin: positive: Color nml, Warm, Dry. negative: Cyanosis, Diaphoresis, Pallor Extremities: positive: Non-tender, Full ROM, Nml appearance, Pedal edema ( Bilateral pitting up to kness) Neurologic/Psychiatric: positive: Oriented x3, CN's nml (2-12), Motor nml, Sensation nml, Mood/affect nml Conclusion/Plan - Problem List (1) CHF (congestive heart failure) Conclusion/Plan: Patient presents with JVD, elevated BNP, anasarca CXR negative but patient has shortness of breath with exertion Lungs are clear EKG and trop negative Patient appears to have ascites on exam and bedside ultrasound Likely has right sided heart failure Plan: Echo Repeat trops IV lasix Fluid and Na restriction Strict I/Os and daily weights Qualifiers: Congestive heart failure type: unspecified congestive heart failure type Congestive heart failure chronicity: acute Qualified Code(s): I50.9 - Heart failure, unspecified (2) Ascites Conclusion/Plan: Likely secondary to right sided heart failure although patient has history of Hep C so cant rule out malignancy or cirrhosis Most recent CT abd a few weeks ago did not show ascites or cirrhosis Plan:' Abd ultrasound Paracentesis Send peritoneal fluid for cell count, cytology, albumin and culture Qualifiers: Ascites type: other type Qualified Code(s): R18.8 - Other ascites (3) Hypokalemia Conclusion/Plan: Severe hypokalemia with K of 2.7 Likely secondary to diarrhea Give K riders and PO potassium replacement Monitor K (4) Diarrhea Conclusion/Plan: Unknown etiology Stool appears very pale looks like it is likely from hepatitis Elevated WBC Patient with recent history of enteritis Non bloody COuld be infectious or possibly from IBD Plan" Stool for c diff and cx If negative start immodium Consider colonoscopy if continues (5) HTN (hypertension) Conclusion/Plan: Not on any antihypertensives but hypertensive on presentation Likely secondary to anxiety and distress Monitor Start antihypertensives if needed (6) Tobacco abuse Conclusion/Plan: Offer nicotine patch Distribution Sales Representative once more stable (7) Prophylactic use of low molecular weight heparin for venous thromboembolism Conclusion/Plan: On lovenox (8) Methamphetamine abuse Conclusion/Plan: She states she has cut down but could not tell me when she last used U tox Will monitor for withdrawal Distribution Sales Representative - Lab Results Lab results reviewed: Yes Fish Bones: 04/21/17 14:10 04/21/17 14:10 - Diagnostic Imaging Results Diagnostic Imaging Results: positive: Final report reviewed - EKG Results EKG Interpreted Independently: Yes Issues/Core Measures - Anticipated LOS Anticipated Stay Length: 2 or more midnights - DVT/VTE - Prophylaxis VTE/DVT Prophylaxis med ordered at admit?: Yes
[2017-04-21] MEDS: POTASSIUM CHLOR 10 MEQ/100 ML 100 ML IV SCH ×3 (18:53→23:03)
[2017-04-21] MEDS: POTASSIUM CHLORIDE 20 MEQ TABLET PO SCH (18:57)
[2017-04-21] MEDS: oxyCODONE 5 MG TABLET PO PRN (18:57)
[2017-04-21 21:05] LABS: BILIRUBIN,URINE NEGATIVE (NEGATIVE)
[2017-04-21 21:06] LABS: UA w/ MICROSCOPIC CHARGE YES
[2017-04-21 21:14] LABS: UR CULTURE IF IND NOT INDICATED; WBC,URINE 0-3 /HPF (0-5)
[2017-04-21] MEDS: buPROPion SR 100 MG TABLET PO SCH (21:45)
[2017-04-21] MEDS: SODIUM CHLORIDE FLUSH 0.9% 10 ML SYRINGE IVP SCH (21:45)
[2017-04-21] MEDS: FUROSEMIDE 40 MG/4 ML VIAL IVP SCH (21:45)
[2017-04-22] MEDS: POTASSIUM CHLOR 10 MEQ/100 ML 100 ML IV SCH ×6 (00:12→04:05)
--- NOTE | 2017-04-22 00:22 | Ultrasound Report ---
EXAM: ABDOMEN ULTRASOUND EXAM DATE: 04/21/2017 10:08 PM. CLINICAL HISTORY: Distended abdomen. COMPARISON: None. TECHNIQUE: Real-time scanning was performed with static images obtained. FINDINGS: Liver: Mildly coarse liver parenchyma. No mass or intrahepatic bile duct dilation. 14.2 cm. Main port al vein flow: Hepatopetal. Gallbladder: Negative sonographic Malone sign. Gallbladder wall thickening in the setting of ascites noted. No gallstones present. Small amount of pericholecystic fluid in this patient with ascites. Biliary System: Common bile duct measures 3 mm. No intrahepatic or extrahepatic ductal dilatation. Pancreas: No pancreatic mass, atrophy or calcifications. Possible node anterior to the pancreas. Kidneys: Right: 10.7 cm longitudinally. Normal. No contour-deforming mass, stones, or hydronephrosis. Left: 10.8 cm longitudinally. Normal. No contour-deforming mass, stones, or hydronephrosis. 2.7 cm an echoic left upper renal cyst. No concerning sonographic features. Spleen: 9.1 x 2.9 x 6.6 cm. Normal in size and echotexture. Aorta and Inferior Vena Cava: Distal abdominal aorta not seen well. No aneurysm is present. Comment: Constant motion of the patient is a limiting factor. Ascites. No loculated collections noted. Greenberg catheter is present in the bladder. IMPRESSION: 1. Moderate abdominal ascites. 2. Coarse liver parenchyma. No liver mass. 3. Gallbladder wall thickening without gallstones or sonographic Malone sign. Gallbladder wall thicke merritt likely related to ascites. No common bile duct dilation or stone. [facility] Referring Provider Line: [phone] SITE ID: [id number]
[2017-04-22 02:30] LABS: BASOPHILS # (AUTO) 0.1 10^3/uL (0.0-0.1); BASOPHILS % (AUTO) 0.8 %; EOSINOPHILS # (AUTO) 0.1 10^3/uL (0.0-0.7); EOSINOPHILS % (AUTO) 0.8 %; HCT - HEMATOCRIT 43.5 % (37.0-47.0); HGB - HEMOGLOBIN 14.4 g/dL (12.0-16.0); LYMPHOCYTES # (AUTO) 1.2 10^3/uL (1.5-3.5); LYMPHOCYTES % (AUTO) 12.1 %; MEAN CORPUSCULAR HEMOGLOBIN 30.3 pg (27.0-31.0); MEAN CORPUSCULAR HGB CONC 33.1 g/dL (32.0-36.0); MEAN CORPUSCULAR VOLUME 91.4 fL (81.0-99.0); MEAN PLATELET VOLUME 8.5 fL (7.9-10.8); MONOCYTES % (AUTO) 9.6 %; NEUTROPHILS # (AUTO) 7.9 10^3/uL (1.5-6.6); NEUTROPHILS % (AUTO) 76.7 %; NUCLEATED RED BLOOD CELLS AUTO 0.1 /100WBC; RED BLOOD COUNT 4.76 10^6/uL (4.20-5.40); RED CELL DISTRIBUTION WIDTH 15.7 % (12.0-15.0); UNCORRECTED WHITE BLOOD COUNT 10.2 x10^3/uL; WHITE BLOOD COUNT 10.2 x10^3/uL (4.8-10.8)
[2017-04-22 02:35] LABS: INR 1.2 (0.8-1.2)
[2017-04-22 02:38] LABS: MAGNESIUM 1.5 mg/dL (1.7-2.8); POTASSIUM 4.2 mmol/L (3.5-5.0)
[2017-04-22] MEDS: oxyCODONE 5 MG TABLET PO PRN (02:41)
[2017-04-22] MEDS: SODIUM CHLORIDE FLUSH 0.9% 10 ML SYRINGE IVP SCH ×2 (04:48→08:46)
[2017-04-22] MEDS: LORazepam 2 MG/ML SYRINGE IVP PRN (05:52)
[2017-04-22] MEDS: SODIUM CHLORIDE FLUSH 0.9% 10 ML SYRINGE IVP PRN (05:52)
[2017-04-22] MEDS: PANTOPRAZOLE 40 MG TABLET PO SCH (06:21)
[2017-04-22] MEDS: POTASSIUM CHLORIDE 20 MEQ TABLET PO SCH ×2 (08:44→11:39)
[2017-04-22] MEDS: ASPIRIN EC 81 MG TABLET PO SCH (08:44)
[2017-04-22] MEDS: ENOXAPARIN 40 MG/0.4 ML SYRINGE SUBQ SCH (08:45)
[2017-04-22] MEDS: buPROPion SR 100 MG TABLET PO SCH (08:45)
[2017-04-22] MEDS: FUROSEMIDE 40 MG/4 ML VIAL IVP SCH (08:45)
[2017-04-22] MEDS: POLYETHYLENE GLYCOL 3350 17 GM PACKET PO SCH (08:46)
[2017-04-22] MEDS: LISINOPRIL 5 MG TABLET PO SCH (11:39)
[2017-04-22] MEDS: METOPROLOL TARTRATE 25 MG TABLET PO SCH (11:39)
[2017-04-23] MEDS: SODIUM CHLORIDE FLUSH 0.9% 10 ML SYRINGE IVP PRN ×2 (01:06→03:11)
[2017-04-23] MEDS: LORazepam 2 MG/ML SYRINGE IVP PRN ×3 (01:06→05:05)
[2017-04-23] MEDS: METOPROLOL TARTRATE 25 MG TABLET PO SCH ×3 (01:27→21:32)
[2017-04-23] MEDS: buPROPion SR 100 MG TABLET PO SCH ×3 (01:27→21:32)
[2017-04-23] MEDS: SODIUM CHLORIDE FLUSH 0.9% 10 ML SYRINGE IVP SCH ×4 (01:27→21:36)
[2017-04-23] MEDS: FUROSEMIDE 40 MG/4 ML VIAL IVP SCH ×2 (01:27→10:03)
[2017-04-23] MEDS: POTASSIUM CHLORIDE 20 MEQ TABLET PO SCH ×4 (01:27→18:05)
[2017-04-23 06:13] LABS: BASOPHILS # (AUTO) 0.2 10^3/uL (0.0-0.1); EOSINOPHILS % (AUTO) 0.3 %; HCT - HEMATOCRIT 48.2 % (37.0-47.0); HGB - HEMOGLOBIN 15.2 g/dL (12.0-16.0); LYMPHOCYTES # (AUTO) 1.8 10^3/uL (1.5-3.5); LYMPHOCYTES % (AUTO) 12.2 %; MEAN CORPUSCULAR HEMOGLOBIN 30.2 pg (27.0-31.0); MEAN CORPUSCULAR HGB CONC 31.6 g/dL (32.0-36.0); MEAN CORPUSCULAR VOLUME 95.7 fL (81.0-99.0); MEAN PLATELET VOLUME 8.8 fL (7.9-10.8); MONOCYTES # (AUTO) 1.3 10^3/uL (0.0-1.0); MONOCYTES % (AUTO) 8.9 %; NEUTROPHILS # (AUTO) 11.5 10^3/uL (1.5-6.6); NEUTROPHILS % (AUTO) 77.6 %; RED BLOOD COUNT 5.04 10^6/uL (4.20-5.40); RED CELL DISTRIBUTION WIDTH 16.7 % (12.0-15.0); UNCORRECTED WHITE BLOOD COUNT 14.8 x10^3/uL; WHITE BLOOD COUNT 14.8 x10^3/uL (4.8-10.8)
[2017-04-23 06:34] LABS: MAGNESIUM 1.7 mg/dL (1.7-2.8); POTASSIUM 6.2 mmol/L (3.5-5.0)
[2017-04-23] MEDS: PANTOPRAZOLE 40 MG TABLET PO SCH (06:51)
--- NOTE | 2017-04-23 08:31 | PROVIDER PROGRESS NOTE ---
Assessment/Plan - Problem List (1) CHF (congestive heart failure) Qualifiers: Congestive heart failure type: unspecified congestive heart failure type Congestive heart failure chronicity: acute Qualified Code(s): I50.9 - Heart failure, unspecified Assessment/Plan: Echo showed EF of 45% with was mildly impaired and severe mitral and tricuspid regurg with moderate pulmonary regurg and moderately impaired RV systolic function Patient has both right and left sided heart failure with right being worse than left She has liver congestion and ascites appears to be secondary to CHF as she does not appear to have cirrhosis on ultrasound and LFTs are stable Improved significantly with IV lasix Will start metoprolol and lisinopril today to optimize CHF meds Continue IV lasix BNP worse today but clinically improved Will need outpatient follow up with cardiology Qualifiers: Congestive heart failure type: unspecified congestive heart failure type Congestive heart failure chronicity: acute Qualified Code(s): I50.9 - Heart failure, unspecified (2) Ascites Conclusion/Plan: Appears to be secondary to severe right heart failure Unable to get paracentesis as there was no clear path to fluid on ultrasound Ultrasound did not show any evidence of cirrhosis Improving with IV lasix Continue IV lasix Qualifiers: Ascites type: other type Qualified Code(s): R18.8 - Other ascites (3) Hypokalemia Conclusion/Plan: Likely secondary to diarrhea resolved (4) Diarrhea Conclusion/Plan: C diff and stool cx negative Fecal leukocytes negative Unlikely infectious Started imodium Diarrhea improved (5) HTN (hypertension) Conclusion/Plan: Not on any antihypertensives but hypertensive on presentation BP much improved Started on lisinopril and metoprolol (6) Tobacco abuse Conclusion/Plan: Counselled (7) Prophylactic use of low molecular weight heparin for venous thromboembolism Conclusion/Plan: On lovenox (8) Methamphetamine abuse Conclusion/Plan: Positive on Utox Patient counselled Likely cause of CHF with cardiomyopathy - Current Meds Current Meds: Current Medications Generic Name Dose Route Start Last Admin Trade Name Freq PRN Reason Stop Dose Admin Acetaminophen 650 mg 04/21/17 15:35 04/22/17 05:52 Tylenol PO 650 mg Q4HR PRN Administration Pain 1 to 4 Aspirin 81 mg 04/22/17 09:00 04/22/17 08:44 Ecotrin PO 81 mg DAILY ZEKE Administration Bupropion HCl 150 mg 04/21/17 21:00 04/23/17 01:27 Wellbutrin Sr PO Not Given BID ZEKE Enoxaparin Sodium 40 mg 04/22/17 09:00 04/22/17 08:45 Lovenox SUBQ 40 mg DAILY ZEKE Administration Furosemide 40 mg 04/21/17 21:00 04/23/17 01:27 Lasix Inj 40 Mg Vial IVP Not Given BID ZEKE Lisinopril 5 mg 04/22/17 11:00 04/22/17 11:39 Zestril PO 5 mg DAILY ZEKE Administration Lorazepam 1 mg 04/21/17 17:53 04/23/17 05:05 Ativan Inj IVP 1 mg Q2HR PRN Administration Anxiety Metoprolol Tartrate 25 mg 04/22/17 11:00 04/23/17 01:27 Lopressor PO Not Given BID ZEKE Oxycodone HCl 5 mg 04/21/17 15:35 04/22/17 02:41 Roxicodone PO 5 mg Q4HR PRN Administration Pain 5 to 7 Oxycodone HCl 10 mg 04/21/17 15:35 04/22/17 06:21 Roxicodone PO 10 mg Q4HR PRN Administration Pain 8 to 10 Pantoprazole Sodium 40 mg 04/22/17 07:00 04/23/17 06:51 Protonix PO Not Given QDAC ZEKE Polyethylene Glycol 17 gm 04/22/17 09:00 04/22/17 08:46 Miralax PO Not Given DAILY ZEKE Potassium Chloride 60 meq 04/21/17 17:00 04/23/17 01:27 K-Dur PO Not Given TIDWM ZEKE Sodium Chloride 10 ml 04/21/17 15:35 04/23/17 03:11 Normal Saline Flush 0.9% IVP 10 ml PRN PRN Administration NEEDED PER PROVIDER ORDERS Sodium Chloride 10 ml 04/21/17 22:00 04/23/17 05:05 Normal Saline Flush 0.9% IVP 10 ml Q8HR ZEKE Administration Zolpidem Tartrate 5 mg 04/21/17 15:35 04/22/17 23:45 Ambien PO 5 mg QPM PRN Administration Insomnia - Lab Result Lab results reviewed: Yes Fish Bone Diagrams: 04/23/17 05:00 04/23/17 05:00 - EKG Results EKG Interpreted Independently: Yes - Diagnostic Imaging Results Diagnostic Imaging Results: positive: Final report reviewed - Additional Planning Condition/Complexity: Improved My Orders: My Active Orders 04/22/17 10:08 Miscellaneous Laboratory Order [LAB] Urgent 04/22/17 11:00 Lisinopril [Zestril] 5 mg PO DAILY Metoprolol Tartrate [Lopressor] 25 mg PO BID Plan Discussed with:: Patient Time Spent: 31-60 minutes Subjective - Subjective Patient Reports: Feeling Better (She is feeling much better. Eating breakfast. She states diarrhea has stopped and she feels her abd distension is improved. Breathing is better.) Nursing Reports: No Complaints Objective Vital Signs: Vital Signs - 24 hr 04/22/17 04/22/17 04/22/17 08:24 11:32 11:39 Temperature 37.0 C 36.8 C Heart Rate [ 101 H 100 Brachial] Respiratory 16 18 Rate Blood Pressure 123/87 H Blood Pressure 131/93 H 123/87 H [Left Brachial artery] Blood Pressure [Right Brachial artery] O2 Saturation 95 97 04/23/17 04/23/17 04/23/17 00:00 05:28 07:44 Temperature 37.1 C 36.4 C L 36.4 C L Heart Rate [ 80 73 75 Brachial] Respiratory 18 20 18 Rate Blood Pressure Blood Pressure 109/80 117/81 H [Left Brachial artery] Blood Pressure 90/67 [Right Brachial artery] O2 Saturation 95 94 100 Oxygen O2 Source Room air I&O (Last 24 Hrs): Intake and Output Totals x24h 04/21/17 04/22/17 04/23/17 23:59 23:59 23:59 Intake Total 100 1202 150 Output Total 350 3050 450 Balance -250 -1848 -300 General: Alert, Oriented x3, Cooperative, No acute distress HEENT: Atraumatic, PERRLA, EOMI, Mucous membr. moist/pink Neck: Supple, No JVD, No thyromegaly, +2 carotid pulse wo bruit, No LAD Lymphatic: no adenopathy Neuro: Alert, Non Focal, CN 2-12 Grossly Intact, Oriented Times 3 Cardiovascular: Other (Systolic murmur, JVD improved) Respiratory: Chest non-tender, Rales (bibasilar) Abdomen: No tenderness, Other (Abdominal distention) Extremities: No clubbing, No cyanosis, Normal pulses, Other (bilateral LE edema) Skin: No rashes, No breakdown - Results Results: Laboratory Results WBC 14.8 x10^3/uL (4.8-10.8) H 04/23/17 05:00 RBC 5.04 10^6/uL (4.20-5.40) 04/23/17 05:00 Hgb 15.2 g/dL (12.0-16.0) 04/23/17 05:00 Hct 48.2 % (37.0-47.0) H 04/23/17 05:00 MCV 95.7 fL (81.0-99.0) 04/23/17 05:00 MCH 30.2 pg (27.0-31.0) 04/23/17 05:00 MCHC 31.6 g/dL (32.0-36.0) L 04/23/17 05:00 RDW 16.7 % (12.0-15.0) H 04/23/17 05:00 Plt Count 266 10^3/uL (130-450) 04/23/17 05:00 MPV 8.8 fL (7.9-10.8) 04/23/17 05:00 Neut # 11.5 10^3/uL (1.5-6.6) H 04/23/17 05:00 Lymph # 1.8 10^3/uL (1.5-3.5) 04/23/17 05:00 [place] # 1.3 10^3/uL (0.0-1.0) H 04/23/17 05:00 Eos # 0.0 10^3/uL (0.0-0.7) 04/23/17 05:00 Baso # 0.2 10^3/uL (0.0-0.1) H 04/23/17 05:00 Absolute Nucleated RBC 0.01 x10^3/uL 04/23/17 05:00 Nucleated RBCs 0.0 /100WBC 04/23/17 05:00 PT 14.0 secs (9.9-12.6) H 04/22/17 02:23 INR 1.2 (0.8-1.2) 04/22/17 02:23 Sodium 140 mmol/L (135-145) 04/23/17 05:00 Potassium 6.2 mmol/L (3.5-5.0) H* 04/23/17 05:00 Chloride 106 mmol/L (101-111) 04/23/17 05:00 Carbon Dioxide 24 mmol/L (21-32) 04/23/17 05:00 Anion Gap 10.0 (6-13) 04/23/17 05:00 BUN 12 mg/dL (6-20) 04/21/17 14:10 Creatinine 0.6 mg/dL (0.4-1.0) 04/21/17 14:10 Estimated GFR (MDRD) 102 (>89) 04/21/17 14:10 Glucose 113 mg/dL (70-100) H 04/21/17 14:10 Calcium 8.6 mg/dL (8.5-10.3) 04/21/17 14:10 Magnesium 1.7 mg/dL (1.7-2.8) 04/23/17 05:00 Total Bilirubin 1.2 mg/dL (0.2-1.0) H 04/21/17 14:10 AST 56 IU/L (10-42) H 04/21/17 14:10 ALT 55 IU/L (10-60) 04/21/17 14:10 Alkaline Phosphatase 87 IU/L (42-121) 04/21/17 14:10 Total Creatine Kinase 199 IU/L (22-269) 04/21/17 14:10 CK-MB (CK-2) 8.3 ng/mL (0.6-6.3) H 04/21/17 14:10 Troponin I 0.05 ng/mL (<0.49) 04/22/17 02:23 B-Natriuretic Peptide 900 pg/mL (5-100) H 04/23/17 05:00 Total Protein 6.0 g/dL (6.7-8.2) L 04/21/17 14:10 Albumin 3.4 g/dL (3.2-5.5) 04/21/17 14:10 Globulin 2.6 g/dL (2.1-4.2) 04/21/17 14:10 Albumin/Globulin Ratio 1.3 (1.0-2.2) 04/21/17 14:10 Lipase 23 U/L (22-51) 04/21/17 14:10 Urine Color YELLOW 04/21/17 20:50 Urine Clarity CLEAR (CLEAR) 04/21/17 20:50 Urine pH 6.0 PH (5.0-7.5) 04/21/17 20:50 Ur Specific [place] 1.025 (1.002-1.030) 04/21/17 20:50 Urine Protein 30 mg/dL (NEGATIVE) H 04/21/17 20:50 Urine Glucose (UA) NEGATIVE mg/dL (NEGATIVE) 04/21/17 20:50 Urine Ketones TRACE mg/dL (NEGATIVE) 04/21/17 20:50 Urine Occult Blood NEGATIVE (NEGATIVE) 04/21/17 20:50 Urine Nitrite NEGATIVE (NEGATIVE) 04/21/17 20:50 Urine Bilirubin NEGATIVE (NEGATIVE) 04/21/17 20:50 Urine Urobilinogen 0.2 (NORMAL) E.U./dL (NORMAL) 04/21/17 20:50 Ur Leukocyte Esterase NEGATIVE (NEGATIVE) 04/21/17 20:50 Urine RBC 0-5 /HPF (0-5) 04/21/17 20:50 Urine WBC 0-3 /HPF (0-5) 04/21/17 20:50 Ur Squamous Epith Cells RARE Squamous (<= Few) 04/21/17 20:50 Urine Bacteria Few /HPF (None Seen) 04/21/17 20:50 Ur Microscopic Review INDICATED 04/21/17 20:50 Urine Culture Comments NOT INDICATED 04/21/17 20:50 Stool Leukocytes, Qual NEGATIVE (Negative) 04/21/17 18:00 Urine Opiates Screen NEGATIVE (NEGATIVE) 04/21/17 20:50 Ur Oxycodone Screen NEGATIVE (NEGATIVE) 04/21/17 20:50 Urine Methadone Screen NEGATIVE (NEGATIVE) 04/21/17 20:50 Ur Propoxyphene Screen NEGATIVE (NEGATIVE) 04/21/17 20:50 Ur Barbiturates Screen NEGATIVE (NEGATIVE) 04/21/17 20:50 Ur Tricyclics Screen NEGATIVE (NEGATIVE) 04/21/17 20:50 Ur Phencyclidine Scrn NEGATIVE (NEGATIVE) 04/21/17 20:50 Ur Amphetamine Screen POSITIVE (NEGATIVE) H 04/21/17 20:50 U Methamphetamines Scrn POSITIVE (NEGATIVE) H 04/21/17 20:50 U Benzodiazepines Scrn NEGATIVE (NEGATIVE) 04/21/17 20:50 Urine Cocaine Screen NEGATIVE (NEGATIVE) 04/21/17 20:50 U Cannabinoids Screen NEGATIVE (NEGATIVE) 04/21/17 20:50
[2017-04-23] MEDS ORDERED: DEXTROSE 50% ABBOJECT 25 GM/50 ML SYRINGE IVP ONE (09:00)
[2017-04-23] MEDS ORDERED: INSULIN REGULAR HUMAN 100 UNIT/1 ML 10 ML MDV IVP ONE (09:00)
[2017-04-23] MEDS ORDERED: CALCIUM GLUCONATE 2,000 MG in SODIUM CHLORIDE 0.9% 100ML 100 ML IV ONE (09:15)
[2017-04-23] MEDS: ENOXAPARIN 40 MG/0.4 ML SYRINGE SUBQ SCH ×2 (10:04→10:31)
[2017-04-23] MEDS: ASPIRIN EC 81 MG TABLET PO SCH (10:04)
[2017-04-23] MEDS: LISINOPRIL 5 MG TABLET PO SCH (10:11)
[2017-04-23] MEDS: POLYETHYLENE GLYCOL 3350 17 GM PACKET PO SCH (10:12)
[2017-04-23 10:40] LABS: ALBUMIN/GLOBULIN RATIO 1.2 (1.0-2.2); BILIRUBIN,TOTAL 0.9 mg/dL (0.2-1.0); BUN - BLOOD UREA NITROGEN 29 mg/dL (6-20); CALCIUM 8.5 mg/dL (8.5-10.3); CARBON DIOXIDE - CO2 24 mmol/L (21-32); CHLORIDE 106 mmol/L (101-111); CREATININE 1.2 mg/dL (0.4-1.0); GFR - MDRD 46 (>89); GLUCOSE 140 mg/dL (70-100); SODIUM 139 mmol/L (135-145); TOTAL PROTEIN 5.5 g/dL (6.7-8.2)
[2017-04-24] MEDS: LORazepam 2 MG/ML SYRINGE IVP PRN (00:28)
[2017-04-24] MEDS: SODIUM CHLORIDE FLUSH 0.9% 10 ML SYRINGE IVP PRN (00:29)
[2017-04-24] MEDS: PANTOPRAZOLE 40 MG TABLET PO SCH (06:21)
[2017-04-24] MEDS: SODIUM CHLORIDE FLUSH 0.9% 10 ML SYRINGE IVP SCH (06:21)
[2017-04-24 08:32] VITALS: BP 114/82
[2017-04-24] MEDS: METOPROLOL TARTRATE 25 MG TABLET PO SCH (09:54)
[2017-04-24] MEDS: ASPIRIN EC 81 MG TABLET PO SCH (09:55)
[2017-04-24] MEDS: ENOXAPARIN 40 MG/0.4 ML SYRINGE SUBQ SCH (09:55)
[2017-04-24] MEDS: POTASSIUM CHLORIDE 20 MEQ TABLET PO SCH (09:55)
[2017-04-24] MEDS: POLYETHYLENE GLYCOL 3350 17 GM PACKET PO SCH (09:55)
[2017-04-24] MEDS: buPROPion SR 100 MG TABLET PO SCH (09:55)
[2017-04-24] MEDS: LISINOPRIL 5 MG TABLET PO SCH (09:55)
--- NOTE | 2017-04-24 10:45 | Discharge Plan ---
Discharge Plan Disposition: 01 Home, Self Care Condition: Fair Prescriptions: Potassium Chloride [K-Dur] 20 meq PO DAILYWM #30 tablet Furosemide [Lasix] 20 mg PO DAILY #30 tablet Metoprolol Tartrate [Lopressor] 25 mg PO BID #60 tablet Lisinopril [Zestril] 5 mg PO DAILY #30 tablet Diet: Low Sodium Activity Restrictions: Activity as Tolerated Shower Restrictions: No Driving Restrictions: No Assistance Devices: Walker Weight Bearing: Full Weight Instruction Topics: Heart Failure, ED Ascites No Smoking: If you smoke, Please STOP! Call for help. Follow-up with: Callie Chavarria ARNP [Primary Care Provider] -
--- NOTE | 2017-04-24 10:53 | PROVIDER PROGRESS NOTE ---
Assessment/Plan - Problem List (1) CHF (congestive heart failure) Qualifiers: Congestive heart failure type: unspecified congestive heart failure type Congestive heart failure chronicity: acute Qualified Code(s): I50.9 - Heart failure, unspecified Assessment/Plan: Echo showed EF of 45% with was mildly impaired and severe mitral and tricuspid regurg with moderate pulmonary regurg and moderately impaired RV systolic function Patient has both right and left sided heart failure with right being worse than left She has liver congestion and ascites appears to be secondary to CHF as she does not appear to have cirrhosis on ultrasound and LFTs are stable Improved significantly with IV lasix Started metoprolol and lisinopril yesterday Patient appears euvolemic will stop IV lasix today and transition to PO lasix for home BNP improved Will need outpatient follow up with cardiology Patient with very unsteady gait needs PT evaluation before discharge Overnight patient was very restless and agitated and was given several doses of ativan therefore very lethargic most of the day and unable to participate with PT will need to have evaluation tomorrow before discharging Qualifiers: Congestive heart failure type: unspecified congestive heart failure type Congestive heart failure chronicity: acute Qualified Code(s): I50.9 - Heart failure, unspecified (2) Ascites Conclusion/Plan: Appears to be secondary to severe right heart failure Unable to get paracentesis as there was no clear path to fluid on ultrasound Ultrasound did not show any evidence of cirrhosis Improving with IV lasix Will transition to PO lasix for home will continue to improve with treatment of heart failure Qualifiers: Ascites type: other type Qualified Code(s): R18.8 - Other ascites (3) Hyperkalemia Conclusion/Plan: Secondary to patient receiving too much K and diarrhea stopping K 6.1 Give calcium gluconate, IV insulin and D50 Recheck K and monitor (4) Diarrhea Conclusion/Plan: C diff and stool cx negative Fecal leukocytes negative Unlikely infectious Started imodium Diarrhea resolved (5) HTN (hypertension) Conclusion/Plan: Well controlled on lisinopril and metoprolol (6) Tobacco abuse Conclusion/Plan: Counselled (7) Prophylactic use of low molecular weight heparin for venous thromboembolism Conclusion/Plan: On lovenox (8) Methamphetamine abuse Conclusion/Plan: Positive on Utox Patient counselled Likely cause of CHF with cardiomyopathy - Current Meds Current Meds: Current Medications Generic Name Dose Route Start Last Admin Trade Name Freq PRN Reason Stop Dose Admin Acetaminophen 650 mg 04/21/17 15:35 04/22/17 05:52 Tylenol PO 650 mg Q4HR PRN Administration Pain 1 to 4 Aspirin 81 mg 04/22/17 09:00 04/24/17 09:55 Ecotrin PO 81 mg DAILY ZEKE Administration Bupropion HCl 150 mg 04/21/17 21:00 04/24/17 09:55 Wellbutrin Sr PO 150 mg BID ZEKE Administration Enoxaparin Sodium 40 mg 04/22/17 09:00 04/24/17 09:55 Lovenox SUBQ Not Given DAILY ZEKE Lisinopril 5 mg 04/22/17 11:00 04/24/17 09:55 Zestril PO 5 mg DAILY ZEKE Administration Lorazepam 1 mg 04/21/17 17:53 04/24/17 00:28 Ativan Inj IVP 1 mg Q2HR PRN Administration Anxiety Metoprolol Tartrate 25 mg 04/22/17 11:00 04/24/17 09:54 Lopressor PO 25 mg BID ZEKE Administration Oxycodone HCl 5 mg 04/21/17 15:35 04/22/17 02:41 Roxicodone PO 5 mg Q4HR PRN Administration Pain 5 to 7 Oxycodone HCl 10 mg 04/21/17 15:35 04/22/17 06:21 Roxicodone PO 10 mg Q4HR PRN Administration Pain 8 to 10 Pantoprazole Sodium 40 mg 04/22/17 07:00 04/24/17 06:21 Protonix PO 40 mg QDAC ZEKE Administration Polyethylene Glycol 17 gm 04/22/17 09:00 04/24/17 09:55 Miralax PO Not Given DAILY ZEKE Potassium Chloride 60 meq 04/21/17 17:00 04/24/17 09:55 K-Dur PO Not Given TIDWM ZEKE Sodium Chloride 10 ml 04/21/17 15:35 04/24/17 00:29 Normal Saline Flush 0.9% IVP 10 ml PRN PRN Administration NEEDED PER PROVIDER ORDERS Sodium Chloride 10 ml 04/21/17 22:00 04/24/17 06:21 Normal Saline Flush 0.9% IVP 10 ml Q8HR ZEKE Administration Zolpidem Tartrate 5 mg 04/21/17 15:35 04/22/17 23:45 Ambien PO 5 mg QPM PRN Administration Insomnia - Lab Result Lab results reviewed: Yes Fish Bone Diagrams: 04/23/17 05:00 04/23/17 10:15 - EKG Results EKG Interpreted Independently: Yes - Diagnostic Imaging Results Diagnostic Imaging Results: positive: Final report reviewed - Additional Planning Condition/Complexity: Guarded My Orders: My Active Orders 04/24/17 Evaluate and Treat PT [PT] Routine 04/24/17 10:45 Discharge [RC] .ONCE Consult/Specialty: PT Plan Discussed with:: Patient, Family Time Spent: 15-30 minutes Subjective - Subjective Patient Reports: Other (Drowsy this morning secondry to ativan. Also was very confused. Later in the afternoon patient was combative. She settled down and stated she was feeling better. She stated diarrhea had improved, no fevers and abd distention had improved.) Nursing Reports: Confused Objective Vital Signs: Vital Signs - 24 hr 04/23/17 04/23/17 04/23/17 13:38 16:00 21:32 Temperature 37.1 C 36.6 C Heart Rate [ 75 74 Brachial] Respiratory 18 20 Rate Blood Pressure 107/75 Blood Pressure [Left Brachial artery] Blood Pressure 107/82 H 91/60 [Right Brachial artery] O2 Saturation 94 96 04/23/17 04/24/17 04/24/17 23:45 08:30 09:54 Temperature 36.1 C L 36.3 C L Heart Rate [ 80 71 Brachial] Respiratory 18 16 Rate Blood Pressure 114/82 H Blood Pressure 114/82 H [Left Brachial artery] Blood Pressure 109/77 [Right Brachial artery] O2 Saturation 100 96 Oxygen O2 Source Room air I&O (Last 24 Hrs): Intake and Output Totals x24h 04/22/17 04/23/17 04/24/17 23:59 23:59 23:59 Intake Total 1202 470 350 Output Total 3050 1150 Balance -1848 -680 350 General: Mild distress (agitated during night and when i woke her up), Other ( drowsy) HEENT: Atraumatic, PERRLA, EOMI, Mucous membr. moist/pink Neck: Supple, No thyromegaly, +2 carotid pulse wo bruit, No LAD, Other (JVD present) Lymphatic: no adenopathy Neuro: Non Focal, CN 2-12 Grossly Intact, Other (Drowsy, combative) Cardiovascular: Regular rate, Normal S1, Normal S2, No murmurs Respiratory: Chest non-tender, No respiratory distress, Rales (bases) Abdomen: Normal bowel sounds, Soft, No tenderness, Other (Distended) Extremities: No clubbing, No cyanosis, Normal pulses, Other (LE edema) Skin: No rashes, No breakdown - Results Results: Laboratory Results WBC 14.8 x10^3/uL (4.8-10.8) H 04/23/17 05:00 RBC 5.04 10^6/uL (4.20-5.40) 04/23/17 05:00 Hgb 15.2 g/dL (12.0-16.0) 04/23/17 05:00 Hct 48.2 % (37.0-47.0) H 04/23/17 05:00 MCV 95.7 fL (81.0-99.0) 04/23/17 05:00 MCH 30.2 pg (27.0-31.0) 04/23/17 05:00 MCHC 31.6 g/dL (32.0-36.0) L 04/23/17 05:00 RDW 16.7 % (12.0-15.0) H 04/23/17 05:00 Plt Count 266 10^3/uL (130-450) 04/23/17 05:00 MPV 8.8 fL (7.9-10.8) 04/23/17 05:00 Neut # 11.5 10^3/uL (1.5-6.6) H 04/23/17 05:00 Lymph # 1.8 10^3/uL (1.5-3.5) 04/23/17 05:00 [place] # 1.3 10^3/uL (0.0-1.0) H 04/23/17 05:00 Eos # 0.0 10^3/uL (0.0-0.7) 04/23/17 05:00 Baso # 0.2 10^3/uL (0.0-0.1) H 04/23/17 05:00 Absolute Nucleated RBC 0.01 x10^3/uL 04/23/17 05:00 Nucleated RBCs 0.0 /100WBC 04/23/17 05:00 PT 14.0 secs (9.9-12.6) H 04/22/17 02:23 INR 1.2 (0.8-1.2) 04/22/17 02:23 Sodium 139 mmol/L (135-145) 04/23/17 10:15 Potassium 5.0 mmol/L (3.5-5.0) 04/23/17 10:15 Chloride 106 mmol/L (101-111) 04/23/17 10:15 Carbon Dioxide 24 mmol/L (21-32) 04/23/17 10:15 Anion Gap 9.0 (6-13) 04/23/17 10:15 BUN 29 mg/dL (6-20) H 04/23/17 10:15 Creatinine 1.2 mg/dL (0.4-1.0) H 04/23/17 10:15 Estimated GFR (MDRD) 46 (>89) L 04/23/17 10:15 Glucose 140 mg/dL (70-100) H 04/23/17 10:15 Calcium 8.5 mg/dL (8.5-10.3) 04/23/17 10:15 Ionized Calcium NO 04/23/17 10:15 Magnesium 1.7 mg/dL (1.7-2.8) 04/23/17 05:00 Total Bilirubin 0.9 mg/dL (0.2-1.0) 04/23/17 10:15 AST 79 IU/L (10-42) H 04/23/17 10:15 ALT 61 IU/L (10-60) H 04/23/17 10:15 Alkaline Phosphatase 88 IU/L (42-121) 04/23/17 10:15 Total Creatine Kinase 199 IU/L (22-269) 04/21/17 14:10 CK-MB (CK-2) 8.3 ng/mL (0.6-6.3) H 04/21/17 14:10 Troponin I 0.05 ng/mL (<0.49) 04/22/17 02:23 B-Natriuretic Peptide 900 pg/mL (5-100) H 04/23/17 05:00 Total Protein 5.5 g/dL (6.7-8.2) L 04/23/17 10:15 Albumin 3.0 g/dL (3.2-5.5) L 04/23/17 10:15 Globulin 2.5 g/dL (2.1-4.2) 04/23/17 10:15 Albumin/Globulin Ratio 1.2 (1.0-2.2) 04/23/17 10:15 Lipase 23 U/L (22-51) 04/21/17 14:10 Urine Color YELLOW 04/21/17 20:50 Urine Clarity CLEAR (CLEAR) 04/21/17 20:50 Urine pH 6.0 PH (5.0-7.5) 04/21/17 20:50 Ur Specific [place] 1.025 (1.002-1.030) 04/21/17 20:50 Urine Protein 30 mg/dL (NEGATIVE) H 04/21/17 20:50 Urine Glucose (UA) NEGATIVE mg/dL (NEGATIVE) 04/21/17 20:50 Urine Ketones TRACE mg/dL (NEGATIVE) 04/21/17 20:50 Urine Occult Blood NEGATIVE (NEGATIVE) 04/21/17 20:50 Urine Nitrite NEGATIVE (NEGATIVE) 04/21/17 20:50 Urine Bilirubin NEGATIVE (NEGATIVE) 04/21/17 20:50 Urine Urobilinogen 0.2 (NORMAL) E.U./dL (NORMAL) 04/21/17 20:50 Ur Leukocyte Esterase NEGATIVE (NEGATIVE) 04/21/17 20:50 Urine RBC 0-5 /HPF (0-5) 04/21/17 20:50 Urine WBC 0-3 /HPF (0-5) 04/21/17 20:50 Ur Squamous Epith Cells RARE Squamous (<= Few) 04/21/17 20:50 Urine Bacteria Few /HPF (None Seen) 04/21/17 20:50 Ur Microscopic Review INDICATED 04/21/17 20:50 Urine Culture Comments NOT INDICATED 04/21/17 20:50 Stool Fat, Qual NORMAL (NORMAL) 04/21/17 18:00 Stool Leukocytes, Qual NEGATIVE (Negative) 04/21/17 18:00 Stool H. pylori Ag SEE NOTE (()) 04/21/17 18:00 Urine Opiates Screen NEGATIVE (NEGATIVE) 04/21/17 20:50 Ur Oxycodone Screen NEGATIVE (NEGATIVE) 04/21/17 20:50 Urine Methadone Screen NEGATIVE (NEGATIVE) 06/15/17 20:50 Ur Propoxyphene Screen NEGATIVE (NEGATIVE) 04/21/17 20:50 Ur Barbiturates Screen NEGATIVE (NEGATIVE) 04/21/17 20:50 Ur Tricyclics Screen NEGATIVE (NEGATIVE) 04/21/17 20:50 Ur Phencyclidine Scrn NEGATIVE (NEGATIVE) 04/21/17 20:50 Ur Amphetamine Screen POSITIVE (NEGATIVE) H 04/21/17 20:50 U Methamphetamines Scrn POSITIVE (NEGATIVE) H 04/21/17 20:50 U Benzodiazepines Scrn NEGATIVE (NEGATIVE) 04/21/17 20:50 Urine Cocaine Screen NEGATIVE (NEGATIVE) 04/21/17 20:50 U Cannabinoids Screen NEGATIVE (NEGATIVE) 04/21/17 20:50 Ova & Parasites SEE NOTE (()) 04/21/17 18:00
--- NOTE | 2017-04-24 12:20 | DISCHARGE SUMMARY ---
DATE OF ADMISSION: 04/21/2017 DATE OF DISCHARGE: 04/24/2017 PRIMARY CARE PHYSICIAN: YONG An DISCHARGING PHYSICIAN: Jamey Bryant MD DISCHARGE DIAGNOSES 1. Systolic heart failure exacerbation. 2. Severe mitral regurgitation. 3. Severe tricuspid regurgitation. 4. Ascites. 5. Hypokalemia. 6. Hyperkalemia. 7. Diarrhea. 8. Hypertension. 9. Tobacco abuse. 10. Methamphetamine abuse. 11. Prophylactic use of low molecular weight heparin. DISCHARGE MEDICATIONS 1. Loperamide 2 mg p.o. t.i.d. with meals p.r.n. for diarrhea. 2. Bupropion 150 mcg p.o. b.i.d. 3. Albuterol sulfate 2 puffs inhaled q.4h. p.r.n. for dyspnea or wheezing. 4. Potassium chloride 20 mEq p.o. daily with meals. 5. Lopressor 25 mg p.o. b.i.d. 6. Lisinopril 5 mg p.o. daily. 7. Lasix 20 mg p.o. daily. HOSPITAL COURSE: The patient is a 57-year-old female with a past medical history significant for rect al cancer in 2003 status post resection, chemotherapy and radiation, untreated hepatitis C, peptic ul cer disease, methamphetamine abuse, osteoarthritis, osteopenia and tobacco abuse, who presented to [facility] emergency department with a chief complaint of abdominal distention. The patient had 3 visits to [facility] emergency department in the past 2 weeks with complaint of nausea, vomiting and diarrhea. She under went a CT of her abdomen and pelvis, which had revealed enteritis, and the patient had been discharge d on steroids in the past. The patient also had another presentation where she was short of breath an d underwent a CT angio of the thorax, which revealed no evidence of pulmonary embolism. The patient w as also found to be hypokalemic at that time and continued to have diarrhea. She was given potassium and Aldactone from the emergency department. The patient returned as she continued to have diffuse di arrhea and was also having increased abdominal distention, which was new for her, and increased lower extremity swelling. The patient on presentation was found to be afebrile. She was tachycardic and ta chypneic, but was saturating well on room air. On examination, she was found to have a distended abdo men. Bedside ultrasound in the emergency department revealed ascites. She was also found to have an e nlarged JVD and had crackles on examination. The patient continued to have diarrhea in the emergency department, and her potassium was initially 2.7 with a BNP of 1981. The patient was admitted to the hospital for what appeared to be a CHF exacerbation with right-sided heart failure and ascites, as well as diarrhea of unknown cause. The patient was worked up for heart failure and was found to have an echo that showed an EF of 45% with severe mitral and tricuspid regur gitation, moderate pulmonary regurgitation, and moderately impaired right ventricular function. The p atient had both right and left-sided heart failure. She was started on a regimen for left-sided heart failure, which included metoprolol and lisinopril. She was given IV Lasix during the hospitalization with which she had significant improvement in her breathing, as well as in the ascites. The patient was worked up for her diarrhea and C difficile and stool cultures were negative and fecal leukocytes were also negative. She was started on Imodium, her diarrhea did resolve. Potassium was replaced. In fact, she became hyperkalemic at one point; therefore, potassium had to be stopped and she was given IV insulin and D50 with which the hyperkalemia resolved. The etiology of her CHF was thought to most likely be nonischemic secondary to methamphetamine abuse. However, she does need further workup and w ill need to follow up with Cardiology. The patient was treated with IV Lasix and had improved to wher e we felt she was well enough to return home. The patient needed to be seen by Physical Therapy prior to discharge as she had an unsteady gait. The day prior to discharge, the patient was [facility] as she was walking independently without any assistance. The patient was in quite a tawana ry to leave, she was not even willing to wait for her discharge paperwork. We did certified lactation counselor the patient on the need to stop methamphetamine use, tobacco use, and also to comply with treatment for CHF incl uding fluid restriction, sodium restriction and taking the medications prescribed to her. The patient 's medications were sent to her pharmacy and the patient was asked to pick them up and take them. The patient did zuleta out of here and was quite combative and angry with the nurses as she just wanted to leave. She did have some profanities for many of the staff and was quite belligerent when she left. PHYSICAL EXAMINATION VITAL SIGNS: Temperature 36.3, heart rate 71, blood pressure 114/82, respiratory rate 16, O2 saturati on 96% on room air. GENERAL: The patient is alert and able to answer all my questions appropriately, although she is quit e angry and wants to leave. HEENT: Pupils are equal and reactive to light. Extraocular muscles are intact. Mucous membranes are m oist. There is no conjunctival pallor or scleral icterus. NECK: Supple. No thyromegaly. The patient does have obviously distended neck veins and positive JVD. LYMPH NODES: There is no cervical or axillary lymphadenopathy noted. CARDIOVASCULAR: S1, S2. There is positive murmur. The patient does not have any rubs or gallops. LUNGS: Clear to auscultation bilaterally. No wheezes, rhonchi, or crackles. ABDOMEN: Distended. There is a positive fluid wave test. The patient has a nontender abdomen with goo d bowel sounds. No rebound or guarding. EXTREMITIES: The patient has trace lower extremity edema. Peripheral pulses are palpable. There is no cyanosis or clubbing. MUSCULOSKELETAL: The patient has good range of motion. No joint tenderness, no joint effusions. SKIN: No skin rash, lesions, cellulitis, or abscesses. NEUROLOGIC: The patient is alert, oriented x3. Cranial nerves 2-12 grossly intact. Strength is grossl y normal. Sensations are intact. LABORATORY: WBC is 14.8, hemoglobin 15.2, hematocrit 48.2, platelet count 266. INR 1.2. Sodium 139, p otassium 5.0, chloride 106, carbon dioxide 24, BUN 29, creatinine 1.2, glucose 140, calcium 8.5, magn esium 1.7, total bilirubin 0.9, AST 79, ALT 61, alkaline phosphatase 88. BNP 900, down from 2326, alb umin 5.5. UA negative. Negative fat in stool. Negative leukocytes in stool. Negative H pylori in stoo l. Positive methamphetamine and amphetamine in the urine. Negative Ova and parasites in stool. Negati ve C difficile. Negative Campylobacter in the stool. IMAGING 1. Echocardiogram impression: 1) Mild concentric left ventricular hypertrophy. 2) Overall left ventri cular systolic function is mildly impaired with an ejection fraction of 45%. 3) Moderate to severe ri ght ventricular enlargement. 4) The right ventricular systolic function is moderately impaired. 5) Se adolph increase in left atrial volume index. 6) Moderate to severe right atrial enlargement. 7) There i s severe mitral regurgitation. 8) There is severe tricuspid regurgitation. 9) Severe abnormal right h eart pressures. 10) Mild to moderate pulmonic regurgitation. 2. Chest x-ray impression: 1) Cardiomegaly with no pulmonary edema. 2) No focal consolidation. 3) Inc reased interstitial markings with peribronchial cuffing, nonspecific areas in the setting of reactive airway disease, bronchitis or viral infection. 3. Ultrasound of abdomen, impression: 1) Moderate abdominal ascites. 2) Coarse liver parenchyma, no l iver mass. 3) Gallbladder wall thickening without gallstones or sonographic Malone sign. Gallbladder wall thickened, likely related to ascites. No common bile duct dilation or stones. FOLLOWUP/RECOMMENDATIONS: The patient is being discharged home. She has been prescribed medications f or her congestive heart failure including metoprolol, lisinopril, and Lasix. The patient was also giv en potassium as she will be on Lasix. She was given counseling on CHF and told that she needs to foll ow up with her primary care physician and needs a referral to Cardiology for further workup. She was told that she likely has cardiomyopathy secondary to her methamphetamine use and could potentially thomas ve coronary artery disease secondary to her tobacco abuse. She was counseled on stopping both of thes e. She did seem to understand and did state that she was willing to stop; however, she did storm out of the hospital and was not willing to listen to the nurses about CHF teaching prior to discharge, no r did she care if we sent her scripts, which we did, to her pharmacy and we are hoping that she does pick them up and that she does take her medications and follow up with her PCP. Greater than 30 minutes were spent on discharge. JOB #: [id number] EXT JOB #:[id number]
[2017-04-26 02:58] LABS: NOROVIRUS RNA PCR STOOL NOT DETECTED (())
== END 2017-04-24 10:45 | disposition home or self-care (01) | DRG 292 ==
LOC: EDUNIT# → ED 13:04 → MS 15:36
PROVIDERS: ADMIT Internal Medicine; ATTEND Internal Medicine
DX: I50.9 Heart failure, unspecified (principal); R10.9 Unspecified abdominal pain; I50.23 Acute on chronic systolic (congestive) heart failure; R18.8 Other ascites; F15.20 Other stimulant dependence, uncomplicated; I08.1 Rheumatic disorders of both mitral and tricuspid valves; E87.6 Hypokalemia; E87.5 Hyperkalemia; T50.3X5A Adverse effect of electrolytic, caloric and water-balance agents, initial encounter; Y92.239 Unspecified place in hospital as the place of occurrence of the external cause; R19.7 Diarrhea, unspecified; F17.200 Nicotine dependence, unspecified, uncomplicated; F17.210 Nicotine dependence, cigarettes, uncomplicated; B19.20 Unspecified viral hepatitis C without hepatic coma; Z82.49 Family history of ischemic heart disease and other diseases of the circulatory system; I10 Essential (primary) hypertension; R26.81 Unsteadiness on feet; J44.9 Chronic obstructive pulmonary disease, unspecified; K21.9 Gastro-esophageal reflux disease without esophagitis; F32.9 Major depressive disorder, single episode, unspecified; F41.9 Anxiety disorder, unspecified; M54.9 Dorsalgia, unspecified; G89.29 Other chronic pain; Z85.048 Personal history of other malignant neoplasm of rectum, rectosigmoid junction, and anus; Z92.21 Personal history of antineoplastic chemotherapy; Z92.3 Personal history of irradiation; Z87.11 Personal history of peptic ulcer disease; Z90.710 Acquired absence of both cervix and uterus
CPT/HCPCS: 36415; 71020; 76700; 80051; 80053; 80306; 81001; 81003; 82550; 82553; 82705; 83630; 83690; 83735; 83880; 84484; 85025; 85610; 87045; 87046; 87086; 87177; 87209; 87338; 87493; 87798; 93005; 93010; 93306; 96365; 96375; 99284; 99285

== ENCOUNTER 2017-04-28 15:12 | Outpatient (CLI) | payer MEDICARE, MEDICAID ==
[2017-04-29 13:28] LABS: ALBUMIN/GLOBULIN RATIO 1.4 (1.0-2.2); BILIRUBIN,TOTAL 0.7 mg/dL (0.2-1.0); CALCIUM 8.8 mg/dL (8.5-10.3); CREATININE 0.9 mg/dL (0.4-1.0); POTASSIUM 3.4 mmol/L (3.5-5.0); TOTAL PROTEIN 6.2 g/dL (6.7-8.2)
== END 2017-04-28 15:13 | disposition home or self-care (01) ==
LOC: LAB.N 15:12
PROVIDERS: ATTEND Nurse Practitioner Gerontology
DX: E87.6 Hypokalemia (principal); I50.9 Heart failure, unspecified
CPT/HCPCS: 36415; 80053; 83880

== ENCOUNTER 2017-05-13 13:52 | Outpatient (CLI) | payer MEDICARE, MEDICAID | END 2017-05-13 13:53 | disposition home or self-care (01) | LOC: LAB.N 13:52 | PROVIDERS: ATTEND Physician Assistant | DX: E87.6 Hypokalemia (principal) | CPT/HCPCS: 36415; 84132 ==

== ENCOUNTER 2017-06-06 09:22 | Outpatient (CLI) | payer MEDICARE, MEDICAID | END 2017-06-06 09:23 | disposition home or self-care (01) | LOC: LAB.N 09:22 | PROVIDERS: ATTEND Nurse Practitioner Gerontology | DX: I50.9 Heart failure, unspecified (principal); E87.6 Hypokalemia | CPT/HCPCS: 36415; 83880; 84132 ==

== ENCOUNTER 2017-07-21 13:11 | Outpatient (CLI) | payer MEDICARE, MEDICAID ==
[2017-07-21 19:31] LABS: CALCIUM 9.7 mg/dL (8.5-10.3); CREATININE 1.1 mg/dL (0.4-1.0)
== END 2017-07-21 13:12 | disposition home or self-care (01) ==
LOC: LAB.N 13:11
PROVIDERS: ATTEND Internal Medicine
DX: R01.1 Cardiac murmur, unspecified (principal); R06.09 Other forms of dyspnea
CPT/HCPCS: 36415; 80048

== ENCOUNTER 2017-07-23 01:34 | Emergency (ER) | payer MEDICARE, MEDICAID ==
--- NOTE | 2017-07-23 01:55 | ED Physician Documentation ---
PD HPI GI BLEED - Stated complaint Stated Complaint: RECTAL BLEEDING - Chief complaint Chief Complaint: Abd Pain - History obtained from History obtained from: Patient - History of Present Illness Timing - onset: Today Timing - duration: Hours (3) Timing - details: Gradual onset Pain level max: 2 Pain level now: 2 Associated symptoms: BRBPR Contributing factors: No: Sick contact, Bad food, Recent antibiotics, Alcohol use, Aspirin use, NSAID use, Stress, Anticoagulated, Diabetes Improved by: Other (nothing) Worsened by: Other (BM) Similar symptoms before: Diagnosis (rectal cancer) - Additional information Additional information: Patient states BRBPR with BM tonight. States small amount. now resolved. No abd pain. No nausea or vomiting. No fevers. Patient states that she had rectal cancer in 2003. States is unable to have colonoscopies secondary to scarring and strictures Review of Systems Ten Systems: 10 systems reviewed and negative Constitutional: denies: Fever, Chills Ears: denies: Ear pain Nose: denies: Rhinorrhea / runny nose, Congestion Throat: denies: Sore throat Cardiac: denies: Chest pain / pressure Respiratory: denies: Cough GI: denies: Nausea, Vomiting, Diarrhea Skin: denies: Rash Musculoskeletal: denies: Neck pain, Back pain Neurologic: denies: Headache PD PAST MEDICAL HISTORY - Past Medical History Cardiovascular: None Respiratory: COPD Neuro: None Endocrine/Autoimmune: None GI: GERD, Ulcers, 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, 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 VOCAL: None : None HEENT: None Psych: Depression, Anxiety Musculoskeletal: Osteoarthritis, Osteoporosis, Scoliosis, Chronic back pain, Other Derm: None - Past Surgical History Past Surgical History: Yes General: Colonoscopy, EGD 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 VOCAL: Hysterectomy - Present Medications Home Medications: Ambulatory Orders Medication Instructions Recorded Confirmed Albuterol Sulf [Ventolin Hfa 2 puffs INH Q4H PRN 04/22/17 04/22/17 Inhaler] Bupropion HCl [Bupropion Xl] 150 mcg PO BID 04/22/17 04/22/17 Loperamide HCl [Loperamide] 2 mg PO TIDWM 04/22/17 04/22/17 Furosemide [Lasix] 20 mg PO DAILY #30 tablet 04/24/17 Lisinopril [Zestril] 5 mg PO DAILY #30 tablet 04/24/17 Metoprolol Tartrate [Lopressor] 25 mg PO BID #60 tablet 04/24/17 Potassium Chloride [K-Dur] 20 meq PO DAILYWM #30 tablet 04/24/17 Aspirin 1 tab PO DAILY 07/23/17 07/23/17 Cholecalciferol [Vitamin D3] 1 tab PO DAILY 07/23/17 07/23/17 Ciprofloxacin HCl [Cipro] 500 mg PO BID #20 tablet 07/23/17 Metronidazole [Flagyl] 500 mg PO BID #20 tablet 07/23/17 - Allergies Allergies/Adverse Reactions: Allergies Allergy/AdvReac Type Severity Reaction Status Date / Time Penicillins Allergy Unknown Verified 07/23/17 01:46 - Social History Does the pt smoke?: Yes Smoking Status: Unknown if ever smoked Does the pt drink ETOH?: No Does the pt have substance abuse?: Yes - Immunizations Immunizations are current?: Yes - POLST Patient has POLST: No POLST Status: Full Code PD ED PE NORMAL - Vitals Vital signs reviewed: Yes - General General: Alert and oriented X 3, No acute distress - HEENT HEENT: Moist mucous membranes - Neck Neck: Supple, no meningeal sign - Cardiac Cardiac: RRR - Respiratory Respiratory: No respiratory distress, Clear bilaterally - Abdomen Abdomen: Soft, Non tender, Non distended - Rectal Rectal: Other (mild gross BRB. no fissure. no hemorrhoid. No mass) - Derm Derm: Warm and dry - Neuro Neuro: Alert and oriented X 3 - Psych Psych: Normal mood, Normal affect Results - Vitals Vitals: Vital Signs - 24 hr 07/23/17 01:44 Temperature 36.6 C Heart Rate 85 Respiratory 18 Rate Blood Pressure 114/78 O2 Saturation 100 Oxygen O2 Source Room air - Labs Labs: Laboratory Tests 07/23/17 07/23/17 07/23/17 02:05 02:05 02:35 WBC 15.7 H RBC 4.80 Hgb 14.5 Hct 43.9 MCV 91.4 MCH 30.3 MCHC 33.1 RDW 16.0 H Plt Count 249 MPV 8.7 Neut # 12.7 H Lymph # 1.5 [place] # 1.4 H Eos # 0.0 Baso # 0.1 Absolute Nucleated RBC 0.01 Nucleated RBCs 0.0 PT 11.7 INR 1.0 APTT 28.6 Sodium 134 L Potassium 5.3 H Chloride 96 L Carbon Dioxide 26 Anion Gap 12.0 BUN 37 H Creatinine 2.0 H Estimated GFR (MDRD) 26 L Glucose 124 H Calcium 9.8 Total Bilirubin 1.0 AST 56 H ALT 61 H Alkaline Phosphatase 87 Total Protein 7.5 Albumin 4.4 Globulin 3.1 Albumin/Globulin Ratio 1.4 Lipase 24 Urine Color Urine Clarity Urine pH Ur Specific [place] Urine Protein Urine Glucose (UA) Urine Ketones Urine Occult Blood Urine Nitrite Urine Bilirubin Urine Urobilinogen Ur Leukocyte Esterase Urine RBC Urine WBC Ur Squamous Epith Cells Urine Bacteria Ur Microscopic Review Urine Culture Comments Urine Opiates Screen Ur Oxycodone Screen Urine Methadone Screen Ur Propoxyphene Screen Ur Barbiturates Screen Ur Tricyclics Screen Ur Phencyclidine Scrn Ur Amphetamine Screen U Methamphetamines Scrn U Benzodiazepines Scrn Urine Cocaine Screen U Cannabinoids Screen Blood Type Antibody Screen 07/23/17 07/23/17 07/23/17 02:35 03:40 03:40 WBC RBC Hgb Hct MCV MCH MCHC RDW Plt Count MPV Neut # Lymph # [place] # Eos # Baso # Absolute Nucleated RBC Nucleated RBCs PT INR APTT Sodium Potassium Chloride Carbon Dioxide Anion Gap BUN Creatinine Estimated GFR (MDRD) Glucose Calcium Total Bilirubin AST ALT Alkaline Phosphatase Total Protein Albumin Globulin Albumin/Globulin Ratio Lipase Urine Color YELLOW Urine Clarity CLEAR Urine pH 5.5 Ur Specific [place] >=1.030 H Urine Protein NEGATIVE Urine Glucose (UA) NEGATIVE Urine Ketones NEGATIVE Urine Occult Blood SMALL H Urine Nitrite NEGATIVE Urine Bilirubin NEGATIVE Urine Urobilinogen 0.2 (NORMAL) Ur Leukocyte Esterase NEGATIVE Urine RBC 0-5 Urine WBC 0-3 Ur Squamous Epith Cells FEW Squamous Urine Bacteria Rare Ur Microscopic Review INDICATED Urine Culture Comments NOT INDICATED Urine Opiates Screen NEGATIVE Ur Oxycodone Screen NEGATIVE Urine Methadone Screen NEGATIVE Ur Propoxyphene Screen NEGATIVE Ur Barbiturates Screen NEGATIVE Ur Tricyclics Screen NEGATIVE Ur Phencyclidine Scrn NEGATIVE Ur Amphetamine Screen POSITIVE H U Methamphetamines Scrn POSITIVE H U Benzodiazepines Scrn NEGATIVE Urine Cocaine Screen NEGATIVE U Cannabinoids Screen NEGATIVE Blood Type O POSITIVE Antibody Screen NEGATIVE - Rads (name of study) CT abd/pelvis Radiology: Prelim report reviewed, EMP read contemporaneously, See rad report ( No urinary tract stones or obstruction. There is mild wall thickening of the central pelvic small bowel loops as before. There is wall thickening of the descending and sigmoid colon, as well as the rectum. This may be due to infectious or inflammatory bowel disease. There is no definite evidence of bowel traction. No free intraabdominal gas. ) PD MEDICAL DECISION MAKING - ED course Complexity details: reviewed results, re-evaluated patient, considered differential, d/w patient, d/w family ED course: Patient is a 57-year-old female who presents to the emergency department with bright red blood per rectum. Appears to have mild wall thickening of the descending and sigmoid colon as well as the rectum, possible infectious disease ? Will place on Cipro and Flagyl for home. Cannot use Bactrim because of her lisinopril and elevated potassium. She is allergic to penicillins. Therefore we will use Cipro at this time. Patient does have leukocytosis, but did use methamphetamines today. Counseled her to please stop using methamphetamines and she states that she is trying to stop and has a physician that she sees who is dual diagnosis psych and substance abuse certified. She is well-appearing, nontoxic. Afebrile. Abdomen is soft, nontender nondistended on serial exam. Normal hemoglobin. Patient counseled regarding signs and symptoms for which I believe and urgent re-evaluation would be necessary. Patient with good understanding of and agreement to plan and is comfortable going home at this time This document was made in part using voice recognition software. While efforts are made to proofread this document, sound alike and grammatical errors may occur. The mild acute renal insufficiency appears secondary to dehydration, likely from continuing to take her Lasix despite utilizing methamphetamine and not drinking enough fluid. She was given IV fluids here, will hold her Lasix and potassium and follow-up with her doctor. Departure - Departure Disposition: 01 Home, Self Care Clinical Impression: Colitis, Bright red blood per rectum Condition: Good Instructions: ED Hematochezia Stable Follow-Up: aCllie Chavarria ARNP [Primary Care Provider] - Within 3 Days Prescriptions: Ciprofloxacin HCl [Cipro] 500 mg PO BID #20 tablet Metronidazole [Flagyl] 500 mg PO BID #20 tablet Comments: Take all antibiotics until gone. Return if you worsen. Hold your Lasix tomorrow. Hold your potassium for the next 3 days. Have your blood rechecked for your electrolytes and kidney function with your doctor early next week. Drink water at home and avoid methamphetamines
[2017-07-23 02:32] LABS: PT - PROTHROMBIN TIME 11.7 secs (9.9-12.6)
[2017-07-23 02:35] LABS: ALBUMIN/GLOBULIN RATIO 1.4 (1.0-2.2); CALCIUM 9.8 mg/dL (8.5-10.3); POTASSIUM 5.3 mmol/L (3.5-5.0); TOTAL PROTEIN 7.5 g/dL (6.7-8.2)
[2017-07-23 02:42] LABS: PARTIAL THROMBOPLASTIN TIME 28.6 secs (24.9-33.3)
[2017-07-23] MEDS ORDERED: SODIUM CHLORIDE 0.9% 1,000 ML IV ONE ×2 (02:44)
[2017-07-23 03:02] LABS: BASOPHILS # (AUTO) 0.1 10^3/uL (0.0-0.1); BASOPHILS % (AUTO) 0.6 %; EOSINOPHILS % (AUTO) 0.2 %; HCT - HEMATOCRIT 43.9 % (37.0-47.0); HGB - HEMOGLOBIN 14.5 g/dL (12.0-16.0); LYMPHOCYTES # (AUTO) 1.5 10^3/uL (1.5-3.5); LYMPHOCYTES % (AUTO) 9.8 %; MEAN CORPUSCULAR HEMOGLOBIN 30.3 pg (27.0-31.0); MEAN CORPUSCULAR HGB CONC 33.1 g/dL (32.0-36.0); MEAN CORPUSCULAR VOLUME 91.4 fL (81.0-99.0); MEAN PLATELET VOLUME 8.7 fL (7.9-10.8); MONOCYTES # (AUTO) 1.4 10^3/uL (0.0-1.0); MONOCYTES % (AUTO) 8.8 %; NEUTROPHILS # (AUTO) 12.7 10^3/uL (1.5-6.6); NEUTROPHILS % (AUTO) 80.6 %; UNCORRECTED WHITE BLOOD COUNT 15.7 x10^3/uL; WHITE BLOOD COUNT 15.7 x10^3/uL (4.8-10.8)
[2017-07-23 04:01] LABS: BILIRUBIN,URINE NEGATIVE (NEGATIVE); PH,URINE 5.5 PH (5.0-7.5)
[2017-07-23 04:07] LABS: UA w/ MICROSCOPIC CHARGE YES; UR CULTURE IF IND NOT INDICATED; WBC,URINE 0-3 /HPF (0-5)
--- NOTE | 2017-07-23 04:12 | CT Preliminary Report ---
Exam: CT Abdomen/Pelvis W/O IMPRESSION: 1. No urinary tract stones or obstruction. 2. There is mild wall thickening of the central pelvic small bowel loops as before. There is wall thi ckening of the descending and sigmoid colon as well as the rectum. This may be due to infectious or i nflammatory bowel disease. 3. There is no definite evidence of bowel traction. No free intra-abdominal gas. [facility] SITE ID: [id number]
--- NOTE | 2017-07-23 04:19 | CT Report ---
EXAM: CT ABDOMEN AND PELVIS (CT KUB) EXAM DATE: 07/23/2017 03:42 AM. CLINICAL HISTORY: Rectal bleeding, elevated creatinine level. COMPARISONS: CT 04/10/2017. TECHNIQUE: Routine axial helical CT imaging was performed through the abdomen and pelvis without IV c ontrast. Reconstructions: Coronal and sagittal. In accordance with CT protocol optimization, one or more of the following dose reduction techniques w ere utilized for this exam: automated exposure control, adjustment of mA and/or KV based on patient s ize, or use of iterative reconstructive technique. FINDINGS: Lack of intravenous contrast reduces exam sensitivity and specificity. Kidneys and ureters: No stones. No hydronephrosis or hydroureter. No definite suspicious renal mass w ithin the confines of a non-contrast exam. There is a cyst within the medial aspect of the left kidne y measuring 2.6 cm (image 20 series 3). Abdominal Solid Organs: Abdominal parenchymal organs are without significant abnormality within the c onfines of a noncontrast exam. Bowel: There is mild apparent wall thickening of the small bowel loops within the pelvis. No signific ant abnormal dilation. Visualized portions of the appendix are normal. There is fecal matter within t he right hemicolon. The transverse colon is predominately collapsed. There is apparent wall thickenin g of the descending and sigmoid colon. Apparent wall thickening of the rectum also noted. There is a small hiatal hernia. Lymph Nodes: No definite pathologic lymphadenopathy. Fluid: No significant ascites. Vasculature: Normal caliber aorta. There is moderate to severe aortic and branch vessel atheroscleros is. Pelvis: Bladder is decompressed, precluding assessment. There is mild presacral edema. Bones: No definite suspicious bony lesions demonstrated. Moderate to severe right hip degenerative ch lalo. Lower Chest: No significant lung base consolidation or effusion. There is mild interstitial scarring within the lung bases bilaterally. There is a bulla within the medial anterior aspect of the left low er lobe. IMPRESSION: 1. No urinary tract stones or obstruction. 2. There is mild wall thickening of the central pelvic small bowel loops as before. There is wall thi ckening of the descending and sigmoid colon, as well as the rectum. This may be due to infectious or inflammatory bowel disease. 3. There is no definite evidence of bowel traction. No free intraabdominal gas. [facility] Referring Provider Line: [phone] SITE ID: [id number]
[2017-07-23] MEDS ORDERED: metroNIDAZOLE 250 MG TABLET PO STA (04:24)
[2017-07-23] MEDS ORDERED: CIPROFLOXACIN 250 MG TABLET PO STA (04:24)
[2017-07-23] MEDS ORDERED: metroNIDAZOLE 250 MG TABLET PO ONE (04:34)
[2017-07-23] MEDS ORDERED: CIPROFLOXACIN 250 MG TABLET PO ONE (04:34)
[2017-07-23 04:59] VITALS: BP 122/74
== END 2017-07-23 04:45 | disposition home or self-care (01) ==
LOC: ED 01:34
DX: K52.9 Noninfective gastroenteritis and colitis, unspecified (principal); K62.5 Hemorrhage of anus and rectum; Z85.048 Personal history of other malignant neoplasm of rectum, rectosigmoid junction, and anus; Z79.82 Long term (current) use of aspirin
CPT/HCPCS: 36415; 74176; 80053; 80306; 81001; 83690; 85025; 85610; 85730; 86850; 86900; 86901; 99283; 99284; A9270; 81003; 87086

== ENCOUNTER 2017-08-16 13:20 | Emergency (ER) | payer MEDICARE, MEDICAID ==
[2017-08-16 13:28] VITALS: BP 121/79
--- NOTE | 2017-08-16 13:52 | ED Physician Documentation ---
PD HPI URI - Stated complaint Stated Complaint: SOA - Chief complaint Chief Complaint: Resp - History obtained from History obtained from: Patient - History of Present Illness Timing - onset: Other (Productive cough with right-sided chest pain only with deep breathing since yesterday, no fevers or chills though. Feels like prior pneumonia. No leg pain or swelling.) Review of Systems Constitutional: reports: Chills, Fatigue. denies: Fever Nose: denies: Rhinorrhea / runny nose, Congestion Cardiac: reports: Chest pain / pressure. denies: Palpitations Respiratory: reports: Dyspnea, Cough GI: denies: Abdominal Pain PD PAST MEDICAL HISTORY - Past Medical History Cardiovascular: None Respiratory: COPD Neuro: None Endocrine/Autoimmune: None GI: GERD, Ulcers, Hepatitis, Other WHEEL BORER: None : None HEENT: None Psych: Depression, Anxiety Musculoskeletal: Osteoarthritis, Osteoporosis, Scoliosis, Chronic back pain, Other Derm: None - Past Surgical History Past Surgical History: Yes General: Colonoscopy, EGD Ortho: Carpal Tunnel surgery /WHEEL BORER: Hysterectomy - Present Medications Home Medications: Ambulatory Orders Medication Instructions Recorded Confirmed Albuterol Sulf [Ventolin Hfa 2 puffs INH Q4H PRN 04/22/17 08/16/17 Inhaler] Bupropion HCl [Bupropion Xl] 150 mcg PO BID 04/22/17 08/16/17 Loperamide HCl [Loperamide] 2 mg PO TIDWM 04/22/17 08/16/17 Furosemide [Lasix] 20 mg PO DAILY #30 tablet 04/24/17 08/16/17 Lisinopril [Zestril] 5 mg PO DAILY #30 tablet 04/24/17 08/16/17 Metoprolol Tartrate [Lopressor] 25 mg PO BID #60 tablet 04/24/17 08/16/17 Potassium Chloride [K-Dur] 20 meq PO DAILYWM #30 tablet 04/24/17 08/16/17 Aspirin 1 tab PO DAILY 07/23/17 08/16/17 Cholecalciferol [Vitamin D3] 1 tab PO DAILY 07/23/17 08/16/17 Azithromycin [Zithromax] 250 mg PO DAILY #4 tablet 08/16/17 HYDROcod/ACETAM 5/325 [[place] 5/325] 1 - 2 ea PO Q6H PRN #10 tablet 08/16/17 - Allergies Allergies/Adverse Reactions: Allergies Allergy/AdvReac Type Severity Reaction Status Date / Time Penicillins Allergy Unknown Verified 08/16/17 13:28 - Social History Does the pt smoke?: Yes Smoking Status: Current every day smoker Does the pt drink ETOH?: No Does the pt have substance abuse?: Yes - Immunizations Immunizations are current?: Yes - POLST Patient has POLST: No POLST Status: Full Code PD ED PE NORMAL - Vitals Vital signs reviewed: Yes (Normal vitals) - General General: Alert and oriented X 3, No acute distress - HEENT HEENT: PERRL, EOMI - Neck Neck: Supple, no meningeal sign, No bony TTP - Cardiac Cardiac: RRR, No murmur - Respiratory Respiratory: No respiratory distress, Other (Diminished with crackles at the right base, winces with deep breathing.) - Abdomen Abdomen: Soft, Non tender - Extremities Extremities: No edema, No calf tenderness / cord - Neuro Neuro: Alert and oriented X 3, Normal speech - Psych Psych: Normal mood, Normal affect Results - Vitals Vitals: Vital Signs - 24 hr 08/16/17 13:24 Temperature 36.5 C Heart Rate 72 Respiratory 20 Rate Blood Pressure 121/79 O2 Saturation 100 Oxygen O2 Source Room air - Rads (name of study) 2v chest Radiology: EMP read contemporaneously (New patchy density at the lateral right lung base.) PD MEDICAL DECISION MAKING - ED course ED course: The patient was counseled as to the diagnosis and need for follow-up. I counseled the patient with regard to signs and symptoms that would necessitate an urgent reevaluation in the emergency department. They understand they are welcome to return at any time if worse or if not improving as expected. This document was made in part using voice recognition software. While efforts are made to proofread this documents, sound alike and grammatical errors may occur. Departure - Departure Disposition: 01 Home, Self Care Clinical Impression: Pneumonia Qualifiers: Pneumonia type: due to unspecified organism Laterality: right Lung location: lower lobe of lung Qualified Code(s): J18.1 - Lobar pneumonia, unspecified organism Condition: Good Record reviewed to determine appropriate education?: Yes Instructions: Pneumonia Dc Prescriptions: Azithromycin [Zithromax] 250 mg PO DAILY #4 tablet HYDROcod/ACETAM 5/325 [[place] 5/325] 1 - 2 ea PO Q6H PRN #10 tablet PRN Reason: Pain Comments: Call your doctor to arrange a follow-up appointment, make the next available appointment. In the interim, return anytime if worse or if new symptoms develop. Discharge Date/Time: 08/16/17 14:09
--- NOTE | 2017-08-16 13:52 | XRAY Preliminary Report ---
Exam: XR CHEST 2 VIEW PA/LAT IMPRESSION: 1. New small patchy density at lateral right lung base. Differential diagnosis including atelectasis, mild patchy pneumonia, or postinflammatory scarring. [facility] SITE ID: [id number]
--- NOTE | 2017-08-16 13:54 | XRAY Report ---
EXAM: CHEST RADIOGRAPHY EXAM DATE: 08/16/2017 01:41 PM. CLINICAL HISTORY: Cough. COMPARISON: 04/21/2017. TECHNIQUE: 2 views. FINDINGS: Lungs/Pleura: There is new mild patchy density at the lateral right lung base and costophrenic angle. The mid and upper lung zones are clear. No pneumothorax. Mediastinum: The heart size is normal and appears smaller than previous. Other: None. IMPRESSION: 1. New small patchy density at lateral right lung base. Differential diagnosis including atelectasis, mild patchy pneumonia, or postinflammatory scarring. [facility] Referring Provider Line: [phone] SITE ID: [id number]
[2017-08-16] MEDS: AZITHROMYCIN 250 MG TABLET PO STA (14:00)
[2017-08-16] MEDS ORDERED: AZITHROMYCIN 250 MG TABLET PO ONE (14:01)
== END 2017-08-16 14:09 | disposition home or self-care (01) ==
LOC: ED 13:20
DX: J18.9 Pneumonia, unspecified organism (principal); F17.200 Nicotine dependence, unspecified, uncomplicated
CPT/HCPCS: 71020; 99283; 99284; A9270

== ENCOUNTER 2017-09-16 08:00 | Outpatient (CLI) | payer MEDICARE, MEDICAID ==
[2017-09-16 12:57] LABS: BASOPHILS # (AUTO) 0.1 10^3/uL (0.0-0.1); BASOPHILS % (AUTO) 0.9 %; EOSINOPHILS # (AUTO) 0.2 10^3/uL (0.0-0.7); EOSINOPHILS % (AUTO) 2.6 %; HCT - HEMATOCRIT 43.2 % (37.0-47.0); HGB - HEMOGLOBIN 13.9 g/dL (12.0-16.0); LYMPHOCYTES # (AUTO) 1.4 10^3/uL (1.5-3.5); LYMPHOCYTES % (AUTO) 16.6 %; MEAN CORPUSCULAR HEMOGLOBIN 30.6 pg (27.0-31.0); MEAN CORPUSCULAR HGB CONC 32.2 g/dL (32.0-36.0); MEAN CORPUSCULAR VOLUME 95.1 fL (81.0-99.0); MONOCYTES # (AUTO) 0.8 10^3/uL (0.0-1.0); MONOCYTES % (AUTO) 9.4 %; NEUTROPHILS # (AUTO) 6.1 10^3/uL (1.5-6.6); NEUTROPHILS % (AUTO) 70.5 %; NUCLEATED RED BLOOD CELLS AUTO 0.1 /100WBC; RED BLOOD COUNT 4.54 10^6/uL (4.20-5.40); RED CELL DISTRIBUTION WIDTH 15.1 % (12.0-15.0); UNCORRECTED WHITE BLOOD COUNT 8.6 x10^3/uL; WHITE BLOOD COUNT 8.6 x10^3/uL (4.8-10.8)
[2017-09-16 13:08] LABS: CALCIUM 8.6 mg/dL (8.5-10.3); CREATININE 1.1 mg/dL (0.4-1.0); POTASSIUM 3.6 mmol/L (3.5-5.0)
== END 2017-09-16 08:01 | disposition home or self-care (01) ==
LOC: LAB.N 08:00
PROVIDERS: ATTEND Physician Assistant Medical
DX: R19.7 Diarrhea, unspecified (principal); R15.9 Full incontinence of feces; E87.6 Hypokalemia; I50.9 Heart failure, unspecified; K58.9 Irritable bowel syndrome, unspecified
CPT/HCPCS: 36415; 80048; 85025

== ENCOUNTER 2018-05-02 08:00 | Outpatient (CLI) | payer MEDICARE, MEDICAID ==
[2018-05-02 12:33] LABS: BASOPHILS # (AUTO) 0.1 10^3/uL (0.0-0.1); BASOPHILS % (AUTO) 0.9 %; EOSINOPHILS # (AUTO) 0.2 10^3/uL (0.0-0.7); EOSINOPHILS % (AUTO) 2.3 %; HGB - HEMOGLOBIN 16.6 g/dL (12.0-16.0); LYMPHOCYTES # (AUTO) 1.4 10^3/uL (1.5-3.5); LYMPHOCYTES % (AUTO) 20.9 %; MEAN CORPUSCULAR HEMOGLOBIN 30.9 pg (27.0-31.0); MEAN CORPUSCULAR HGB CONC 32.3 g/dL (32.0-36.0); MEAN CORPUSCULAR VOLUME 95.7 fL (81.0-99.0); MEAN PLATELET VOLUME 9.4 fL (7.9-10.8); MONOCYTES # (AUTO) 0.7 10^3/uL (0.0-1.0); MONOCYTES % (AUTO) 10.6 %; NEUTROPHILS # (AUTO) 4.5 10^3/uL (1.5-6.6); NEUTROPHILS % (AUTO) 65.3 %; PLT - PLATELET COUNT 282 10^3/uL (130-450); RED BLOOD COUNT 5.39 10^6/uL (4.20-5.40); RED CELL DISTRIBUTION WIDTH 15.8 % (12.0-15.0); WHITE BLOOD COUNT 6.9 x10^3/uL (4.8-10.8)
[2018-05-02 13:06] LABS: ALBUMIN 3.9 g/dL (3.2-5.5); ALBUMIN/GLOBULIN RATIO 1.1 (1.0-2.2); BILIRUBIN,TOTAL 0.3 mg/dL (0.2-1.0); CALCIUM 9.6 mg/dL (8.5-10.3); CREATININE 1.1 mg/dL (0.4-1.0); TOTAL PROTEIN 7.3 g/dL (6.7-8.2)
== END 2018-05-02 08:01 | disposition home or self-care (01) ==
LOC: LAB.N 08:00
PROVIDERS: ATTEND Nurse Practitioner Gerontology
DX: E87.6 Hypokalemia (principal); I50.9 Heart failure, unspecified; B19.20 Unspecified viral hepatitis C without hepatic coma
CPT/HCPCS: 36415; 80053; 84443; 85025

== ENCOUNTER 2018-05-02 08:43 | Outpatient (CLI) | payer MEDICARE, MEDICAID ==
--- NOTE | 2018-05-02 10:21 | XRAY Report ---
Procedure Date: 05/02/2018 Accession Number: [id number] / [id number] Procedure: XRN - Hip w/Pelvis 1V RT CPT Code: FULL RESULT: EXAM: Hip w/Pelvis 1V RT DATE: 05/02/2018 9:05 AM CLINICAL HISTORY: JOINT PAIN COMPARISON: None. TECHNIQUE: 1 view of the pelvis and 1 view of the hip. FINDINGS: Bones: Normal. No fracture or bone lesion. Joints: Severe right hip osteoarthritis, with complete collapse of the superior joint space. Soft Tissues: Normal. No soft tissue swelling. IMPRESSION: Severe right hip osteoarthritis. [facility]
== END 2018-05-02 08:44 | disposition home or self-care (01) ==
LOC: DI.N 08:43
PROVIDERS: ATTEND Nurse Practitioner Gerontology
DX: M16.11 Unilateral primary osteoarthritis, right hip (principal); E87.6 Hypokalemia; I50.9 Heart failure, unspecified; B19.20 Unspecified viral hepatitis C without hepatic coma
CPT/HCPCS: 36415; 80053; 84443; 85025

== ENCOUNTER 2018-08-28 10:07 | Outpatient (CLI) | payer MEDICARE, MEDICAID ==
[2018-08-28 14:25] LABS: BASOPHILS % (AUTO) 0.9 %; EOSINOPHILS # (AUTO) 0.2 10^3/uL (0.0-0.7); EOSINOPHILS % (AUTO) 3.2 %; HGB - HEMOGLOBIN 14.9 g/dL (12.0-16.0); LYMPHOCYTES # (AUTO) 0.8 10^3/uL (1.5-3.5); LYMPHOCYTES % (AUTO) 16.4 %; MEAN CORPUSCULAR HGB CONC 33.1 g/dL (32.0-36.0); MEAN CORPUSCULAR VOLUME 93.6 fL (81.0-99.0); MEAN PLATELET VOLUME 9.3 fL (7.9-10.8); MONOCYTES # (AUTO) 0.4 10^3/uL (0.0-1.0); MONOCYTES % (AUTO) 7.7 %; NEUTROPHILS # (AUTO) 3.6 10^3/uL (1.5-6.6); NEUTROPHILS % (AUTO) 71.8 %; PLT - PLATELET COUNT 289 10^3/uL (130-450); RED BLOOD COUNT 4.81 10^6/uL (4.20-5.40); RED CELL DISTRIBUTION WIDTH 15.7 % (12.0-15.0)
[2018-08-28 14:55] LABS: ALBUMIN 3.6 g/dL (3.2-5.5); ALBUMIN/GLOBULIN RATIO 1.1 (1.0-2.2); BILIRUBIN,TOTAL 0.6 mg/dL (0.2-1.0); CALCIUM 9.1 mg/dL (8.5-10.3); CREATININE 1.4 mg/dL (0.4-1.0); TOTAL PROTEIN 6.9 g/dL (6.7-8.2)
== END 2018-08-28 10:08 | disposition home or self-care (01) ==
LOC: LAB.N 10:07
PROVIDERS: ATTEND Nurse Practitioner Gerontology
DX: R94.4 Abnormal results of kidney function studies (principal); F15.20 Other stimulant dependence, uncomplicated
CPT/HCPCS: 36415; 80053; 85025

== ENCOUNTER 2018-09-25 13:41 | Outpatient (CLI) | payer MEDICARE, MEDICAID ==
[2018-09-25 19:23] LABS: ALBUMIN 3.2 g/dL (3.2-5.5); ALBUMIN/GLOBULIN RATIO 0.9 (1.0-2.2); BILIRUBIN,TOTAL 0.4 mg/dL (0.2-1.0); CALCIUM 9.1 mg/dL (8.5-10.3); CREATININE 0.9 mg/dL (0.4-1.0); TOTAL PROTEIN 6.6 g/dL (6.7-8.2)
== END 2018-09-25 13:42 | disposition home or self-care (01) ==
LOC: LAB.N 13:41
PROVIDERS: ATTEND Nurse Practitioner Gerontology
DX: R94.4 Abnormal results of kidney function studies (principal); E07.9 Disorder of thyroid, unspecified; E87.6 Hypokalemia; I50.9 Heart failure, unspecified
CPT/HCPCS: 36415; 80053; 84443

== ENCOUNTER 2018-10-06 08:31 | Outpatient (CLI) | payer MEDICARE, MEDICAID ==
--- NOTE | 2018-10-06 09:52 | DEXA Report ---
Reason: BONE DISORDER Procedure Date: 10/06/2018 Accession Number: [id number] / [id number] Procedure: DEX - Dexa Spine and/or Hip CPT Code: FULL RESULT: EXAM: Dexa Spine and/or Hip DATE: 10/06/2018 9:05 AM CLINICAL HISTORY: BONE DISORDER TECHNIQUE: Dual energy x-ray absorptiometry (DXA) was performed on a [employer] System. Regions measured are the AP Spine, femoral neck, and if needed forearm. COMPARISON: None. In accordance with the International Society for Clinical Densitometry (ISCD) guidelines, data from previous exams may be reanalyzed using current recommendations and techniques. This is done to allow a more accurate basis for comparison with the current study. FINDINGS: The data for the lumbar spine is as follows: BMD (g/cm/cm) T-SCORE Z-SCORE REGION L1 0.983 -1.2 0.6 L2 1.014 -1.5 0.2 L3 1.048 -1.3 0.5 L4 1.056 -1.2 0.6 TOTAL 1.029 -1.3 0.5 NOTE: All evaluable vertebrae are used for classification The data for the hip is as follows: BMD (g/cm/cm) T-SCORE Z-SCORE REGION Neck 0.817 -1.6 0.0 TOTAL 0.748 -2.1 -0.7 NOTE: The femoral neck or total proximal femur, whichever is lowest, is used for classification. IMPRESSION: THE WHO CLASSIFICATION BASED ON THE INTERNATIONAL REFERENCE STANDARD IS OSTEOPENIA. THE FRACTURE RISK IS INCREASED. RECOMMENDATION: Patients with diagnosis of osteoporosis or osteopenia should have regular bone mineral density assessment. For those eligible for Medicare, routine testing is allowed once every 2 years. Testing frequency can be increased for patients who have rapidly progressing disease or for those who are receiving medical therapy to restore bone mass. COMMENT: World Health Organization (WHO) definitions for osteoporosis and osteopenia: NORMAL BMD: T-score at -1.0 or higher, fracture risk is low OSTEOPENIA BMD: T-score between -1.0 and -2.5, fracture risk is increased. OSTEOPOROSIS BMD: T-score at -2.5 or lower, fracture risk is high. National Osteoporosis Foundation recommends: 1. Obtain adequate dietary calcium (at least 1200 mg per day) and vitamin D (400-800 international units per day). 2. Participate, as appropriate, in regular weightbearing and muscle-strengthening exercise. 3. Avoid tobacco use and reduce alcohol and caffeine intake. 4. For more detailed information see the website at www.NOF.org.
== END 2018-10-06 08:32 | disposition home or self-care (01) ==
LOC: DI 08:31
PROVIDERS: ATTEND Nurse Practitioner Gerontology
DX: M85.89 Other specified disorders of bone density and structure, multiple sites (principal)
CPT/HCPCS: 77080

== ENCOUNTER 2018-10-11 13:05 | Outpatient (CLI) | payer MEDICARE, MEDICAID ==
[2018-10-11 19:27] LABS: CALCIUM 9.1 mg/dL (8.5-10.3); CREATININE 1.2 mg/dL (0.4-1.0)
== END 2018-10-11 23:59 | disposition home or self-care (01) ==
LOC: LAB.N 13:05
PROVIDERS: ATTEND Hospitalist
DX: R06.02 Shortness of breath (principal); I50.9 Heart failure, unspecified
CPT/HCPCS: 36415; 80048

== ENCOUNTER 2018-10-18 09:18 | Outpatient (CLI) | payer MEDICARE, MEDICAID ==
[2018-10-18 13:39] LABS: ALBUMIN 3.7 g/dL (3.2-5.5); ALBUMIN/GLOBULIN RATIO 1.3 (1.0-2.2); BILIRUBIN,TOTAL 0.5 mg/dL (0.2-1.0); CALCIUM 9.7 mg/dL (8.5-10.3); CREATININE 1.2 mg/dL (0.4-1.0); TOTAL PROTEIN 6.6 g/dL (6.7-8.2)
== END 2018-10-18 23:59 | disposition home or self-care (01) ==
LOC: LAB.N 09:18
PROVIDERS: ATTEND Nurse Practitioner Gerontology
DX: R94.4 Abnormal results of kidney function studies (principal); I50.9 Heart failure, unspecified; R06.02 Shortness of breath; E87.6 Hypokalemia; E07.9 Disorder of thyroid, unspecified; N28.9 Disorder of kidney and ureter, unspecified
CPT/HCPCS: 36415; 80053; 83880; 84443

== ENCOUNTER 2019-01-15 09:23 | Outpatient (CLI) | payer MEDICARE, MEDICAID | END 2019-01-15 09:24 | disposition home or self-care (01) | LOC: SC 09:23 | PROVIDERS: ATTEND Internal Medicine Pulmonary Disease | DX: R09.02 Hypoxemia (principal); Z87.891 Personal history of nicotine dependence | CPT/HCPCS: 99203; G0463; 99212 ==

== ENCOUNTER 2019-01-22 20:25 | Outpatient (CLI) | payer MEDICARE, MEDICAID | END 2019-01-22 20:26 | disposition home or self-care (01) | LOC: SC 20:25 | PROVIDERS: ATTEND Internal Medicine Pulmonary Disease | DX: G47.33 Obstructive sleep apnea (adult) (pediatric) (principal) | CPT/HCPCS: 95810 ==

== ENCOUNTER 2019-03-19 08:17 | Outpatient (CLI) | payer MEDICARE, MEDICAID | END 2019-03-19 08:18 | disposition home or self-care (01) | LOC: SC 08:17 | PROVIDERS: ATTEND Nurse Practitioner Family | DX: G47.33 Obstructive sleep apnea (adult) (pediatric) (principal); R03.1 Nonspecific low blood-pressure reading | CPT/HCPCS: 99215; G0463; 99212 ==

== ENCOUNTER 2019-11-29 08:00 | Outpatient (CLI) | payer MEDICARE, MEDICAID | END 2019-11-29 23:59 | disposition home or self-care (01) | LOC: LAB.N 08:00 | PROVIDERS: ATTEND Nurse Practitioner Gerontology | DX: E07.9 Disorder of thyroid, unspecified (principal) | CPT/HCPCS: 36415; 84443 ==

== ENCOUNTER 2019-12-31 10:55 | Outpatient (CLI) | payer MEDICARE, MEDICAID | END 2019-12-31 23:59 | disposition home or self-care (01) | LOC: LAB.N 10:55 | PROVIDERS: ATTEND Nurse Practitioner Gerontology | DX: E07.9 Disorder of thyroid, unspecified (principal) | CPT/HCPCS: 36415; 84443 ==

== ENCOUNTER 2020-01-14 13:09 | Outpatient (CLI) | payer MEDICARE, MEDICAID ==
--- NOTE | 2020-01-15 07:15 | Mammography Report ---
Reason: ROUTINE MAMMO Procedure Date: 01/14/2020 Accession Number: [id number] / [id number] Procedure: MGN - Screening Mammo w/[facility] CPT Code: Final Report FULL RESULT: EXAM: Screening Mammo w/[facility] DATE: 01/14/2020 1:29 PM CLINICAL HISTORY: Screening encounter. History of nulliparity. TECHNIQUE: (B) - Bilateral CC and MLO views were obtained. COMPARISON: 04/18/2014 through 02/29/2012. PARENCHYMAL PATTERN: (D) - The breast(s) demonstrate(s) heterogeneously dense fibroglandular parenchyma. FINDINGS: There are no suspicious masses, calcifications, or areas of distortion. IMPRESSION: Negative examination. BI-RADS category 1. RECOMMENDATION: (ANNUAL) - Recommend routine annual screening mammography. BI-RADS CATEGORY: (1) - Negative. STANDARD QUALIFYING STATEMENTS: 1. This examination was not reviewed with the aid of Computer-Aided Detection (CAD). 2. A negative or benign imaging report should not preclude biopsy if clinically suspicious findings are present. 3. Dense breasts may obscure an underlying neoplasm. 4. This examination was reviewed with the aid of 3D breast imaging (tomosynthesis).
== END 2020-01-14 13:10 | disposition home or self-care (01) ==
LOC: DI.N 13:09
DX: Z12.31 Encounter for screening mammogram for malignant neoplasm of breast (principal)
CPT/HCPCS: 77063; 77067

== ENCOUNTER 2020-12-26 08:00 | Outpatient (CLI) | payer MEDICARE, MEDICAID ==
[2020-12-26 12:35] LABS: BASOPHILS # (AUTO) 0.1 10^3/uL (0.0-0.1); BASOPHILS % (AUTO) 0.8 %; EOSINOPHILS # (AUTO) 0.2 10^3/uL (0.0-0.7); EOSINOPHILS % (AUTO) 2.6 %; HGB - HEMOGLOBIN 16.1 g/dL (12.0-16.0); LYMPHOCYTES # (AUTO) 1.3 10^3/uL (1.5-3.5); LYMPHOCYTES % (AUTO) 21.2 %; MEAN CORPUSCULAR HEMOGLOBIN 31.4 pg (27.0-31.0); MEAN CORPUSCULAR HGB CONC 31.4 g/dL (32.0-36.0); MEAN CORPUSCULAR VOLUME 99.8 fL (81.0-99.0); MEAN PLATELET VOLUME 11.3 fL (7.9-10.8); MONOCYTES # (AUTO) 0.6 10^3/uL (0.0-1.0); MONOCYTES % (AUTO) 9.6 %; NEUTROPHILS # (AUTO) 4.1 10^3/uL (1.5-6.6); NEUTROPHILS % (AUTO) 65.5 %; PLT - PLATELET COUNT 269 10^3/uL (130-450); RED BLOOD COUNT 5.13 10^6/uL (4.20-5.40); WHITE BLOOD COUNT 6.2 x10^3/uL (4.8-10.8)
[2020-12-26 13:05] LABS: ALBUMIN 3.7 g/dL (3.2-5.5); ALBUMIN/GLOBULIN RATIO 1.2 (1.0-2.2); ALKALINE PHOSPHATASE 85 IU/L (42-121); ALT ALANINE AMINOTRANSFERASE 56 IU/L (10-60); AST ASPARTATE AMINOTRANSFERASE 53 IU/L (10-42); BILIRUBIN,TOTAL 0.6 mg/dL (0.2-1.0); BUN - BLOOD UREA NITROGEN 14 mg/dL (6-20); CALCIUM 9.5 mg/dL (8.5-10.3); CARBON DIOXIDE - CO2 30 mmol/L (21-32); CHLORIDE 102 mmol/L (101-111); CREATININE 1.3 mg/dL (0.4-1.0); GLUCOSE 92 mg/dL (70-100); TOTAL PROTEIN 6.7 g/dL (6.7-8.2)
[2020-12-26 13:06] LABS: CHOL/HDL RATIO 3.4 (<4.4); CHOLESTEROL 134 mg/dL; HDL CHOLESTEROL 39 mg/dL; LDL CHOLESTEROL,CALCULATED 74 mg/dL; LDL/HDL RATIO 1.9 (<4.4); VLDL CHOLESTEROL 21 mg/dL
[2020-12-26 13:43] LABS: FREE T4 (FREE THYROXINE) 1.08 ng/dL (0.58-1.64)
== END 2020-12-26 23:59 | disposition home or self-care (01) ==
LOC: LAB.WCP 08:00
PROVIDERS: ATTEND Nurse Practitioner Family
DX: E07.9 Disorder of thyroid, unspecified (principal); R94.4 Abnormal results of kidney function studies; E87.6 Hypokalemia; I50.9 Heart failure, unspecified
CPT/HCPCS: 36415; 80053; 80061; 83721; 84439; 84443; 85025

== ENCOUNTER 2021-06-15 16:26 | Outpatient (CLI) | payer MEDICARE, MEDICAID | END 2021-06-15 16:27 | disposition home or self-care (01) | LOC: COV 16:26 | PROVIDERS: ATTEND Family Medicine | DX: R50.9 Fever, unspecified (principal); R05 Cough; R53.83 Other fatigue; Z20.822 Contact with and (suspected) exposure to COVID-19 ==

== ENCOUNTER 2021-12-14 07:04 | Outpatient (CLI) | payer MEDICARE, MEDICAID ==
[2021-12-14 11:58] LABS: BASOPHILS # (AUTO) 0.1 10^3/uL (0.0-0.1); EOSINOPHILS # (AUTO) 0.2 10^3/uL (0.0-0.7); EOSINOPHILS % (AUTO) 3.4 %; HCT - HEMATOCRIT 53.5 % (37.0-47.0); LYMPHOCYTES # (AUTO) 1.3 10^3/uL (1.5-3.5); LYMPHOCYTES % (AUTO) 25.5 %; MEAN CORPUSCULAR HEMOGLOBIN 31.8 pg (27.0-31.0); MEAN CORPUSCULAR HGB CONC 31.8 g/dL (32.0-36.0); MEAN PLATELET VOLUME 11.2 fL (7.9-10.8); MONOCYTES # (AUTO) 0.5 10^3/uL (0.0-1.0); MONOCYTES % (AUTO) 10.3 %; NEUTROPHILS # (AUTO) 3.1 10^3/uL (1.5-6.6); NEUTROPHILS % (AUTO) 59.6 %; PLT - PLATELET COUNT 234 10^3/uL (130-450); RED BLOOD COUNT 5.35 10^6/uL (4.20-5.40); RED CELL DISTRIBUTION WIDTH 14.3 % (12.0-15.0); WHITE BLOOD COUNT 5.3 x10^3/uL (4.8-10.8)
[2021-12-14 12:43] LABS: THYROID STIMULATING HORMONE 8.95 uIU/mL (0.34-5.60)
[2021-12-14 12:45] LABS: FREE T4 (FREE THYROXINE) 0.71 ng/dL (0.58-1.64)
[2021-12-14 12:58] LABS: ALBUMIN 3.5 g/dL (3.2-5.5); ALBUMIN/GLOBULIN RATIO 1.2 (1.0-2.2); ALKALINE PHOSPHATASE 80 IU/L (42-121); ALT ALANINE AMINOTRANSFERASE 63 IU/L (10-60); AST ASPARTATE AMINOTRANSFERASE 68 IU/L (10-42); BILIRUBIN,TOTAL 0.5 mg/dL (0.2-1.0); BUN - BLOOD UREA NITROGEN 27 mg/dL (6-20); CALCIUM 9.7 mg/dL (8.5-10.3); CARBON DIOXIDE - CO2 27 mmol/L (21-32); CHLORIDE 105 mmol/L (101-111); CREATININE 1.2 mg/dL (0.4-1.0); GFR - MDRD 45 (>89); GLUCOSE 102 mg/dL (70-100); POTASSIUM 4.3 mmol/L (3.5-5.0); SODIUM 140 mmol/L (135-145); TOTAL PROTEIN 6.5 g/dL (6.7-8.2)
[2021-12-14 13:27] LABS: CRP - C-REACTIVE PROTEIN < 1.0 mg/dL (0-1.0)
[2021-12-14 13:41] LABS: BILIRUBIN,URINE NEGATIVE (NEGATIVE); GLUCOSE, URINE (UA) NEGATIVE (NEGATIVE); KETONES,URINE (UA) NEGATIVE (NEGATIVE); LEUKOCYTE ESTERASE, URINE NEGATIVE (NEGATIVE); NITRITE,URINE POSITIVE (NEGATIVE); OCCULT BLOOD,URINE NEGATIVE (NEGATIVE); PH,URINE 5.5 PH (5.0-7.5); PROTEIN,URINE NEGATIVE (NEGATIVE); UROBILINOGEN,URINE 0.2 (NORMAL) E.U./dL (NORMAL)
[2021-12-14 14:06] LABS: BACTERIA,URINE Moderate /HPF (None Seen); CLARITY,URINE HAZY (CLEAR); RBC,URINE None Seen /HPF (0-5); SQUAMOUS EPITHELIAL CELL,UR RARE Squamous (<= Few)
== END 2021-12-14 07:05 | disposition home or self-care (01) ==
LOC: LAB.N 07:04
PROVIDERS: ATTEND Nurse Practitioner
DX: R53.83 Other fatigue (principal); Z85.048 Personal history of other malignant neoplasm of rectum, rectosigmoid junction, and anus
CPT/HCPCS: 36415; 80053; 81001; 82607; 84439; 84443; 85025; 85651; 86140; 87086; 87181

== ENCOUNTER 2021-12-16 12:14 | Outpatient (CLI) | payer MEDICARE, MEDICAID ==
--- NOTE | 2021-12-16 14:56 | CT Report ---
PROCEDURE: Low Dose Lung Cancer Screen INDICATIONS: NICOTINE DEPENDENCE TECHNIQUE: Noncontrast low-dose images were acquired from the pulmonary apices to the posterior costophrenic ang les. Multiplanar MIP reformats were then acquired. For radiation dose reduction, the following was used: automated exposure control, adjustment of mA and/or kV according to patient size. COMPARISON: CT chest without contrast, 09/06/2017. FINDINGS: Image quality: Excellent. Lungs and pleura: There are multiple small lung nodules bilaterally. The largest nodule is in the le ft lower lobe measuring 6 mm nodule (series 4 image 199), unchanged since 09/06/2017, compared with a benign nodule. Nodule 1: 6 mm; left lower lobe; series 4 image 199; groundglass; unchanged. Moderate emphysema. There is a lucency in the lingula consistent with a large emphysematous bulla. Th ere are scars and atelectasis in lingula and right lower lobe. No pleural effusions. Mediastinum: Heart size is normal. Mild coronary artery calcification. There is severe mitral annul ar calcification. No pericardial effusion. No mediastinal adenopathy by size criteria. Thoracic aor ta and central pulmonary arteries are normal in size. Moderate aortic calcification. Esophagus is no rmal in caliber. Small hiatal hernia. Bones and chest wall: No suspicious bony lesions. No vertebral body compression fractures. No axil kings or supraclavicular adenopathy by size criteria. The thyroid is normal in size and there are no incidental findings. Abdomen: Visualized upper abdomen solid organs and bowel loops appear normal in the absence of contr ast. IMPRESSION: 1. Small lung nodules are present bilaterally. ACR lung RADS category 2. Recommend a screening lung C T in 12 months. 2. Moderate emphysema. 3. Lingular and right lower lobe scars and atelectasis. CLINICAL RECOMMENDATION STATEMENTS: In patients <35 years with an ITN detected on CT, MRI, or extrathyroidal ultrasound, the Committee re commends further evaluation with dedicated thyroid ultrasound if the nodule is "e1 cm and has no susp icious imaging features, and if the patient has normal life expectancy. In patients "e35 years with an ITN detected on CT, MRI, or extrathyroidal ultrasound, the Committee r ecommends further evaluation with dedicated thyroid ultrasound if the nodule is "e1.5 cm and has no s uspicious imaging features, and if the patient has normal life expectancy. (ACR, 2014) Reviewed by: Coty Tomlinson MD on 12/16/2021 2:55 PM PST Approved by: Coty Tomlinson MD on 12/16/2021 2:55 PM PST Station ID: [id number]
== END 2021-12-16 12:15 | disposition home or self-care (01) ==
LOC: DI 12:14
PROVIDERS: ATTEND Nurse Practitioner
DX: Z12.2 Encounter for screening for malignant neoplasm of respiratory organs (principal); F17.210 Nicotine dependence, cigarettes, uncomplicated; R91.8 Other nonspecific abnormal finding of lung field; J43.9 Emphysema, unspecified; J98.11 Atelectasis; J98.4 Other disorders of lung